=== PATIENT | female | born 1935 | race Hispanic/Latino ===

== ENCOUNTER 2017-09-20 06:44 | Day surgery (SDC) | payer MEDICARE, MEDICAID ==
[2017-09-19 13:39] VITALS: BMI 38.8
[2017-09-20 07:58] LABS: Hematocrit 26.5 % (36.0-47.0); Mean Platelet Volume 8.1 fL (7.4-10.4); Red Blood Cell (RBC) Count 3.08 mill/uL (4.20-5.40); White Blood Cell (WBC) Count 7.8 thou/uL (4.8-10.8)
[2017-09-20] MEDS ORDERED: Fentanyl 100 MCG/2 ML VIAL ONE (08:23)
[2017-09-20 08:26] LABS: Anion Gap 11 mmol/L (10-20); BUN (Urea Nitrogen) 27 mg/dL (9.8-20.1); Calc. Creatinine Clearance 37 mL/min (70-130); Calcium 7.9 mg/dL (7.8-10.44); Carbon Dioxide 27 mmol/L (23-31); Chloride 109 mmol/L (98-107); Estimated GFR-MDRD 32
[2017-09-20] MEDS ORDERED: Lidocaine 1% w/Epinephrine 1:200K 30 ML VIAL ONE (08:26)
--- NOTE | 2017-09-20 10:29 | OP ---
DATE OF PROCEDURE: 09/20/2017 SURGEON: Juvenal Major M.D. PREOPERATIVE DIAGNOSES: Chronic right temporal headaches. POSTOPERATIVE DIAGNOSES: Right temporal headaches, rule out temporal arteritis. PROCEDURE PERFORMED: Right temporal artery biopsy. PROCEDURE IN DETAIL: After consent was obtained, the patient was identified, brought to the operatin g room and placed on the table in supine position. Monitored anesthesia care was delivered and the a loretta of intended surgery was demarcated with a Doppler in a fashion that the artery was delineated. W e then prepped and draped the patient and infiltrated 1% lidocaine with 1:100,000 epinephrine. Under microscopic visualization, we made an incision, dissected down through skin and subcutaneous tissues and temporalis fascia. The artery was identified and an 8 cm length was removed in a hemostatic fas hion. Clips were placed proximally and distally with Hemoclips and bipolar was used for additional h emostasis. The wound was closed in layers, and Dermabond was applied. The patient was awakened and taken to recovery room where she remained in stable condition prior to discharge home.
--- NOTE | 2017-09-20 15:55 | EKG ---
Test Reason : PREOP Blood Pressure : / mmHG Vent. Rate : 075 BPM Atrial Rate : 075 BPM P-R Int : 118 ms QRS Dur : 078 ms QT Int : 422 ms P-R-T Axes : 083 041 064 degrees QTc Int : 471 ms Normal sinus rhythm Nonspecific T wave abnormality Prolonged QT Abnormal ECG When compared with ECG of 19-MAR-2014 08:53, No significant change was found Confirmed by CARY SOLITARIO ([id number]) on 09/20/2017 3:55:39 PM Referred By: HEIDI Confirmed By:CARY SOLITARIO
[2017-09-20] MEDS ORDERED: Propofol 200 MG/20 ML VIAL ONE (17:06)
[2017-09-20] MEDS ORDERED: Lidocaine 1% PF 5 ML VIAL ONE (17:06)
== END 2017-09-20 10:55 | disposition home or self-care (01) ==
LOC: SDC 06:44
PROVIDERS: ATTEND Specialist
PROC: 03BS0ZX Excision of Right Temporal Artery, Open Approach, Diagnostic (ICD-10-PCS; principal; 2017-09-20)
DX: I70.8 Atherosclerosis of other arteries (principal); Z90.710 Acquired absence of both cervix and uterus; Z98.890 Other specified postprocedural states; I12.9 Hypertensive chronic kidney disease with stage 1 through stage 4 chronic kidney disease, or unspecified chronic kidney disease; E11.22 Type 2 diabetes mellitus with diabetic chronic kidney disease; N18.3 Chronic kidney disease, stage 3 (moderate); J44.9 Chronic obstructive pulmonary disease, unspecified; E78.5 Hyperlipidemia, unspecified; M19.90 Unspecified osteoarthritis, unspecified site; Z87.891 Personal history of nicotine dependence
CPT/HCPCS: 80048; 85027; 88305; 88313; 93005; 93010; J2001; J2704; J3010

== ENCOUNTER 2018-01-16 17:43 | Inpatient (IN) | payer MEDICARE, MEDICAID ==
[2018-01-16 18:34] LABS: Bilirubin Negative (Negative); Blood, Urine Moderate (Negative); Clarity TURBID (Clear); Glucose, Urine (Dipstick) Negative (Negative); Leukocyte Large (Negative); Nitrite Negative (Negative); Protein, Urine (Dipstick) 100 mg/dL (Neg-Trace); Specific Gravity, Urine 1.018 (1.002-1.036); pH, Urine 5.5 (5.0-9.0)
[2018-01-16 18:38] LABS: Bacteria/HPF 4+ HPF (None Seen); Hyaline Casts/LPF 0-3 HYALINE CAST LPF (0-3 Hyaline); Pathc Cast-AUWi Flag 0.27 (0-2.49); Squamous Epithelial 0-3 HPF (0-3)
[2018-01-16 19:05] LABS: #Lymphocytes 1.5 thou/uL (1.20-3.40); #Neutrophils 10.3 thou/uL (1.40-6.50); %Basophils 0.1 % (0.0-1.0); %Eosinophils 0.2 % (0.0-10.0); %Lymphocytes 11.6 % (21.0-51.0); %Monocytes 7.4 % (0.0-10.0); %Neutrophils 80.7 % (42.0-75.0); Hemoglobin 8.9 g/dL (12.0-16.0); Mean Corpuscular HGB CONC 32.9 g/dL (32.0-36.0); Mean Corpuscular Hemoglobin 26.5 pg (27.0-31.0); Mean Corpuscular Volume 80.5 fl (81.0-99.0); Mean Platelet Volume 8.5 fL (7.4-10.4); Platelet Count 176 thou/uL (130-400); RBC Distribution Width 16.6 % (11.5-14.5); Red Blood Cell (RBC) Count 3.35 mill/uL (4.20-5.40); White Blood Cell (WBC) Count 12.8 thou/uL (4.8-10.8)
[2018-01-16 19:24] LABS: ALT (SGPT) Less than 7 U/L (8-55); AST (SGOT) 10 U/L (5-34); Albumin 3.4 g/dL (3.4-4.8); Alkaline Phosphatase 108 U/L (40-150); Anion Gap 13 mmol/L (10-20); BUN (Urea Nitrogen) 22 mg/dL (9.8-20.1); Bilirubin, Total 0.5 mg/dL (0.2-1.2); Calc. Creatinine Clearance 0 mL/min (70-130); Calcium 8.8 mg/dL (7.8-10.44); Carbon Dioxide 26 mmol/L (23-31); Chloride 103 mmol/L (98-107); Estimated GFR-MDRD 27; Globulin 3.1 g/dL (2.4-3.5); Glucose 110 mg/dL (83-110); Potassium 3.5 mmol/L (3.5-5.1); Protein, Total 6.5 g/dL (6.0-8.3); Sodium 138 mmol/L (136-145)
[2018-01-16 20:50] LABS: CKMB 1.1 ng/mL (0-6.6); Troponin I 0.045 ng/mL (< 0.028)
--- NOTE | 2018-01-16 22:29 | RAD ---
SUPINE PORTABLE CHEST ONE VIEW: 01/16/18 HISTORY: 82-year-old female with history of altered mental status and intermittent episodes of confusion with difficulty walking for two days. Heart size is within upper range of normal limits. Increased linear interstitial and reticulonodular parenchymal changes bilaterally. These reticulonodular parenchymal changes particularly in the left m id and somewhat lower lung zone appear more prominent on prior study raising the possibility of eithe r that of some acute atypical pneumonia or pneumonitis or some progressive chronic lung change. There is some minimal hyperinflation with blunting of the costophrenic angles. IMPRESSION: Increased markings bilaterally including some reticulonodular parenchymal changes in the left mid low er lung zone, possibly representing some progressive chronic change versus some minimal focal pneumon ia or pneumonitis. Correlate clinically. Consider short term followup. POS: CHASE
--- NOTE | 2018-01-16 23:01 | CT ---
BRAIN CT WITHOUT IV CONTRAST: 01/16/18 HISTORY: 82-year-old female with altered mental status, unable to walk, subjective fever, slight facial droop. COMPARISON: 08/16/07. FINDINGS: There is bilateral atrophy and chronic white matter ischemic changes and some old lacunar infarct lee nges with some generalized ventriculomegaly showing overall progression when compared to the prior 03 05 exam. Sinuses and mastoids are clear. No mass or midline shift. No intra or extra-axial hemorrhage. IMPRESSION: Atrophy, chronic white matter ischemic changes, and old lacunar infarct changes showing some progress ion from prior 2006 but no evidence for mass or bleed or other acute process. POS: CHASE
--- NOTE | 2018-01-16 23:41 | CT ---
ABDOMEN AND PELVIC CT SCAN WITHOUT IV CONTRAST: 01/16/18 HISTORY: 82-year-old female with diffuse abdominal pain. Concern for urinary tract infection. Low GFR. There are some minimal patchy parenchymal changes in the left lower lobe raising concern for minimal patchy pneumonia or pneumonitis. These were not present on the prior 07/05/16 CT. Status post cholecys tectomy. Visualized liver appears unremarkable. Pancreas and spleen are unremarkable. 1.5 cm diameter left adrenal adenoma. Several left renal cysts up to 4.8 cm. Small calcific focus in the right kidne y possibly a nonobstructing renal calculus. No evidence for acute obstruction. The wall of the deidre dder is mildly thickened possibly representing some cystitis, although it is not significantly disten ded either. There is scattered colonic diverticulosis without acute diverticulitis. No CT evidence fo r acute appendicitis. There are some borderline sized to mildly dilated loops of small bowel with a f ew scattered air fluid levels, nonspecific. There does not appear to be any significant abrupt transi tion zone. There is a small infraumbilical hernia containing a loop of small bowel. A similar appeara nce was noted on the prior 2016 study. It is conceivable that this could be resulting in some partial small bowel obstruction. IMPRESSION: Minimally dilated small bowel with some air fluid levels. Possibly a low grade partial small bowel ob struction versus some focal ileus. There is a small anterior abdominal wall hernia containing a porti on of a loop of bowel, although it does not appear to be overtly constricting or narrowing at the poi nt of the hernia, so I am not certain if this is related to the minimal small bowel dilatation. This small hernia was present and does not appear significantly changed when compared to the prior 2016. P arenchymal changes in the left lower lobe raises concern for patchy pneumonia or pneumonitis. Probabl e small hiatal hernia. Small stable left adrenal adenoma. No evidence for other significant acute pro cess in the abdomen pelvis. Other findings as above. POS: CHASE
[2018-01-17] MEDS ORDERED: Sodium Chloride 0.9% 100 ML ONE (00:17)
[2018-01-17] MEDS ORDERED: Aspirin 300 MG Suppository ONE (00:17)
[2018-01-17] MEDS ORDERED: cefTRIAXone\\ROCEPHIN 2 GM VIAL ONE (00:17)
--- NOTE | 2018-01-17 01:09 | PDOC.FPRHP ---
- History of Present Illness Chief Complaint: fatigue History of Present Illness: Stable 82 F comes into ED for evaluation of worsening confusion and weakness for 3-4 days. PMH includes shingles and DM2. Patient is A&Ox3 and lively at time of examination. She denies any pain, 0/10. Denies headache, abdominal pain , or burning with urination. Grand-daughter states patient has been acting more confused for last 3-4 and she noticed some R facial droop yesterday. Denies slurring of speech or focal weakness. Patient is usually ambulatory for granddaughter but has been too weak to walk for the last few days. Denies N/V, constipation. Had a BM before coming to ED. Patient states she has been passing flatus. Granddaughter reports mild decreased appetite past few days. ED Course: CT head negative CT Abd/pelvis shows possible partial SBO vs Ileus Rocephin - Allergies/Adverse Reactions Allergies Allergy/AdvReac Type Severity Reaction Status Date / Time No Known Allergies Allergy Verified 09/19/17 13:39 - Home Medications Medication Instructions Recorded Confirmed Type Levothyroxine Sodium 50 mcg PO DAILY 07/07/17 01/17/18 History Lisinopril 10 mg PO DAILY 07/07/17 01/17/18 History Omeprazole 20 mg PO HS 07/07/17 01/17/18 History metFORMIN HCl [metFORMIN HCl ER] 1,000 mg PO BID-PC 07/07/17 01/17/18 History Atorvastatin Calcium [Atorvastatin 40 mg PO HS 09/19/17 01/17/18 History Calcium] Cholecalciferol (Vitamin D3) 1,000 unit PO DAILY 09/19/17 01/17/18 History [Vitamin D3] Donepezil HCl [Aricept] 5 mg PO HS 09/19/17 01/17/18 History Mirabegron [Myrbetriq ER] 25 mg PO HS 09/19/17 01/17/18 History Gabapentin [Gabapentin] 100 mg PO TID 01/17/18 01/17/18 History Levemir Flexpen [Levemir FlexPen] 15 units SC HS 01/17/18 01/17/18 History - History PMHx:SHingles, DM2, HLD, HTN PSHx: Hysterectomy, C/S, Cholecystecomty 2/2 mass FHx: non-contributory Social: 1-2 ppd smoker for 40+ years, quit ~10 years ago, no alcohol, no drugs - Review of Systems General: reports: fatigue. denies: fever/chills, weight/appetite/sleep changes Eyes: denies: eye pain, vision changes ENT: denies: nasal congestion, rhinorrhea Respiratory: denies: cough, congestion, shortness of breath Cardiovascular: reports: edema. denies: chest pain, palpitation Gastrointestinal: denies: nausea, vomiting, diarrhea, constipation, abdominal pain, GI bleeding Genitourinary: denies: dysuria, polyuria Skin: reports: lesions (Old shingles vesicular rash on R side of abdomen). denies: rashes, jaundice Musculoskeletal: denies: pain, arthritis/arthralgias Neurological: denies: numbness, syncope Psychological: denies: anxiety, depression - Vital signs BP: 187/84 HR: 75 RR: 22 Tmax: 99.0 Pox: 93% on Ra Wt: 65kg - Physical Exam Constitutional: NAD, awake, alert and oriented -Constitutional: A&Ox3 HEENT: normocephalic and atraumatic, PERRLA, EOMI, grossly normal vision, MMM Neck: supple, FROM Heart: RRR, normal S1/S2, no murmurs/rubs/gallops, pulses present -Lungs: Diffuse expiratory wheezes consistent with smoking history, rales left lower quadrant Abdomen: soft, bowel sounds present, no masses/distention -Abdomen: Tender to deep palpation RUQ, rebound negative, non-tender to light palpation Musculoskeletal: normal structure, normal tone -Neurological: CN II-XII grossly intact Questionable slight R mouth droop - patient smiles and puffs cheeks without difficulty, no asymmetry raises legs off bed, normal strength in upper extremities symmetric Facial sensation intact and symmetrical Skin: capillary refill <2 seconds -Skin: old vesicular rash from shingles on R side of abdomen Heme/Lymphatic: no unusual bruising or bleeding, no purpura Psychiatric: normal mood and affect FMR H&P: Results - Labs Result Diagrams: 01/17/18 04:01 01/17/18 04:01 Lab results: WBC 12.8 thou/uL (4.8-10.8) H 01/16/18 18:52 Hgb 8.9 g/dL (12.0-16.0) L 01/16/18 18:52 Hct 27.0 % (36.0-47.0) L 01/16/18 18:52 MCV 80.5 fl (81.0-99.0) L 01/16/18 18:52 Plt Count 176 thou/uL (130-400) 01/16/18 18:52 Neutrophils % 80.7 % (42.0-75.0) H 01/16/18 18:52 Sodium 138 mmol/L (136-145) 01/16/18 18:52 Potassium 3.5 mmol/L (3.5-5.1) 01/16/18 18:52 Chloride 103 mmol/L (98-107) 01/16/18 18:52 Carbon Dioxide 26 mmol/L (23-31) 01/16/18 18:52 BUN 22 mg/dL (9.8-20.1) H 01/16/18 18:52 Creatinine 1.80 mg/dL (0.6-1.1) H 01/16/18 18:52 Glucose 110 mg/dL (83-110) 01/16/18 18:52 Lactic Acid 1.3 mmol/L (0.5-2.2) 01/16/18 18:52 Calcium 8.8 mg/dL (7.8-10.44) 01/16/18 18:52 Total Bilirubin 0.5 mg/dL (0.2-1.2) 01/16/18 18:52 AST 10 U/L (5-34) 01/16/18 18:52 ALT Less than 7 U/L (8-55) L 01/16/18 18:52 Alkaline Phosphatase 108 U/L (40-150) 01/16/18 18:52 CK-MB (CK-2) 1.1 ng/mL (0-6.6) 01/16/18 18:52 Serum Total Protein 6.5 g/dL (6.0-8.3) 01/16/18 18:52 Albumin 3.4 g/dL (3.4-4.8) 01/16/18 18:52 Urine Ketones Negative mg/dL (Negative) 01/16/18 18:18 Urine Blood Moderate (Negative) H 01/16/18 18:18 Urine Nitrite Negative (Negative) 01/16/18 18:18 Ur Leukocyte Esterase Large (Negative) H 01/16/18 18:18 Urine RBC 7-10 HPF (0-3) H 01/16/18 18:18 Urine WBC Greater Than 50-TNTC HPF (0-3) H 01/16/18 18:18 Ur Squamous Epith Cells 0-3 HPF (0-3) 01/16/18 18:18 Urine Bacteria 4+ HPF (None Seen) H 01/16/18 18:18 FMR H&P: A/P - Problem List (1) UTI (urinary tract infection) Current Visit: Yes Status: Acute (2) Dementia Current Visit: No Status: Chronic Code(s): F03.90 - UNSPECIFIED DEMENTIA WITHOUT BEHAVIORAL DISTURBANCE Qualifiers: Dementia type: unspecified type Dementia behavioral disturbance: without behavioral disturbance Qualified Code(s): F03.90 - Unspecified dementia without behavioral disturbance (3) Diabetes type 2, controlled Current Visit: No Status: Chronic Code(s): E11.9 - TYPE 2 DIABETES MELLITUS WITHOUT COMPLICATIONS (4) Dyslipidemia Current Visit: No Status: Chronic Code(s): E78.5 - HYPERLIPIDEMIA, UNSPECIFIED (5) GERD (gastroesophageal reflux disease) Current Visit: No Status: Chronic Code(s): K21.9 - GASTRO-ESOPHAGEAL REFLUX DISEASE WITHOUT ESOPHAGITIS (6) Hypertension Current Visit: No Status: Chronic Code(s): I10 - ESSENTIAL (PRIMARY) HYPERTENSION Qualifiers: Hypertension type: essential hypertension Qualified Code(s): I10 - Essential (primary) hypertension - Plan # Encephalopathy 2/2 UTI - rocephin - Lactic Acid 1.3 - afebrile - A&Ox3 after rocephin # Possible SBO vs Ileus - partial SBO vs ileus on CT abd/pelvis - Had BM today, patient states has flatus - tender to deep palpation in RUQ - Monitor clinically, NG later if not passing flatus or increased abdominal pain - NPO for now, fluids #Questionable facial droop - NIH stroke scale 0 - no focal deficits - smiles and puffs cheeks symmetrically -CT head negative - no further work up at this time # Parenchymal Changes Left Mid Lung - Rocephin - possible PNA - rales on exam, no hypoxia, no fever - 2 view CXR in AM for further characterization # HTN - home lisinopril 10 daily, consider increasing - added amlodipine 5mg 2/2 pressures in 180s systolic - labetolol PRN # Indeterminate Trop - 0.045 - no chest pain, no EKG changes - trend # DM2 - home levemir 15U qHS - accuchecks qAC-HS # Dementia - home donepezil - A&Ox3 # HLD - atorvastatin # Code - DNR - discussed with daughter and patient in ED # PPx - SCDs - will hold pharmacologic for now 2/2 possibility of SBO FMR H&P: Upper Level - Pertinent history 82 yo female with 2-3 days of increased fatigue and confusion. She denies abdominal pain. She has had several loose bowel movements. She states that she has passed gas but her family is not so certain. She denies dysuria or urinary frequency. - Pertinent findings Gen: WD/WN female in no acute distress HEENT: NC/AT, KARISHMA,EOMI, MMM, Facial asymmetry at rest with right mouth droop but not with active movements. She has asymmetric dentition. Resp: bilateral mild rhonchi, normal work of breathing. CV: RRR, normal S1, S2, no murmur ABD: Soft with some tenderness in RUQ, nondistended. She has a rash along that space consistent with zoster. Extremities: no edema, pulses 2+ Psych: calm, normal affect and mood Neuro: normal strength and sensation, CN exam normal, including multiple tests of the facial nerve. - Plan Date/Time: 01/17/18 0102 Genesis Ross, have evaluated this patient and agree with findings/plan as outlined by record label internship resident. Pertinent changes/additions are listed here. # Metabolic Encephalopathy- Patient does not meet sepsis criteria but is more confused according to close family, especially before treatement in ED. She has a UA consistent with infection so we will treat that # Possible SBO or Ileus- CT did have some signs consistent with partial SBO and there is tenderness on exam, although this was over skin with zoster infection. We will hydrate and monitor symptoms #Facial asymmetry from dentition- Originally concerned for facial droop but slight asymmetry is better explained by dentition rather than neuro deficit because facial nerve exam is symmetric with active use. # Parenchymal Changes Left Mid Lung- heard on exam and seen on CXR, although that could be residual from PNA last month. CXR not available from last month. Will repeat CXR tomorrow. # HTN- uncontrolled here. Will monitor and consider outpatient adjustment. She typically is controlled in clinic but has had readings higher than currently is # Indeterminate Trop- trending down. No chest pain to suggest cardiac # DM2- continue home insulin # Dementia close to baseline but still somewhat confused # HLD- continue home statin Attending Addendum - Attending Addendum Date/Time: 01/17/18 1535 I personally evaluated the patient and discussed the management with Dr. Márquez/ Paul. I agree with the History, Examination, Assessment and Plan documented above with any addition or exceptions noted below. Patient admitted for several days of increased confusion and weakness. She has history of dementia. She currently complains of abdominal pain that is tender to light touch and directly over her previous zoster infection. She is A&Ox1 at current time. She have evidence of UTI on UA, as well as mild infiltrate on CXR. She will be treated with antibiotics and work on improving pain control. Currently she does not appear to have SBO as she had bowel movement yesterday and is passing flatus. Continue to monitor, NGT has been discontinued. Will give clear diet and advance as tolerated. Reintroduce NGT if she fails diet or has worsening distention/obstipation. Will get PT/OT on board for weakness and generalized deconditioning.
[2018-01-17 01:24] LABS: Troponin I 0.033 ng/mL (< 0.028)
[2018-01-17] MEDS ORDERED: Ondansetron HCl/PF 4 MG/2 ML Vial IVP PRN (01:49)
[2018-01-17] MEDS ORDERED: HYDROcodone/Acetaminophen 5/325 mg Tablet PO PRN (01:49)
[2018-01-17] MEDS ORDERED: Dextrose 5% in Water 1,000 ML IV PRN (01:57)
[2018-01-17] MEDS ORDERED: Dextrose 50% Abboject 50 ML SYRINGE SLOW IVP PRN (01:57)
[2018-01-17] MEDS: Sodium Chloride 0.9% 1,000 ML IV SCH ×2 (03:26→13:50)
[2018-01-17 04:23] VITALS: BMI 29.9
[2018-01-17 05:01] LABS: #Lymphocytes 1.4 thou/uL (1.20-3.40); #Monocytes 0.7 thou/uL (0.11-0.59); #Neutrophils 7.9 thou/uL (1.40-6.50); %Basophils 0.2 % (0.0-1.0); %Eosinophils 0.4 % (0.0-10.0); %Monocytes 6.7 % (0.0-10.0); %Neutrophils 78.7 % (42.0-75.0); Mean Corpuscular HGB CONC 32.5 g/dL (32.0-36.0); Mean Corpuscular Hemoglobin 26.1 pg (27.0-31.0); Mean Corpuscular Volume 80.5 fl (81.0-99.0); Mean Platelet Volume 9.1 fL (7.4-10.4); Platelet Count 163 thou/uL (130-400); RBC Distribution Width 16.4 % (11.5-14.5); Red Blood Cell (RBC) Count 3.06 mill/uL (4.20-5.40)
[2018-01-17 05:12] LABS: Anion Gap 12 mmol/L (10-20); BUN (Urea Nitrogen) 20 mg/dL (9.8-20.1); Bilirubin, Total 0.3 mg/dL (0.2-1.2); Calc. Creatinine Clearance 30 mL/min (70-130); Calcium 8.3 mg/dL (7.8-10.44); Carbon Dioxide 22 mmol/L (23-31); Chloride 108 mmol/L (98-107); Estimated GFR-MDRD 32; Glucose 85 mg/dL (83-110); Potassium 3.4 mmol/L (3.5-5.1); Sodium 139 mmol/L (136-145)
[2018-01-17 05:13] LABS: ALT (SGPT) Less than 7 U/L (8-55); AST (SGOT) 11 U/L (5-34); Albumin 3.1 g/dL (3.4-4.8); Alkaline Phosphatase 99 U/L (40-150); Globulin 2.9 g/dL (2.4-3.5)
[2018-01-17 05:15] LABS: Troponin I 0.039 ng/mL (< 0.028)
[2018-01-17] MEDS: Levothyroxine Sodium 50 MCG TAB PO SCH (06:42)
[2018-01-17] MEDS: Docusate 100 MG CAP PO SCH ×2 (08:29→20:14)
[2018-01-17] MEDS: Lisinopril 10 MG TAB PO SCH (08:29)
[2018-01-17] MEDS: Calcium Carbonate 500 MG ChewTAB PO SCH (08:29)
[2018-01-17] MEDS: Gabapentin 100 MG CAP PO SCH ×3 (08:29→20:14)
[2018-01-17] MEDS: Amlodipine 5 MG TAB PO SCH (08:33)
--- NOTE | 2018-01-17 10:07 | RAD ---
2 VIEWS CHEST: Date: 01/17/18 COMPARISON: 01/16/18. HISTORY: Follow-up left lower lobe infiltrate. FINDINGS: 2 views of the chest show normal sized cardiomediastinal silhouette with atherosclerotic calcificatio ns in the aorta. NG tube seen in the stomach. There is slight worsening of the opacities projecting o pj the left lower lobe which likely represent an infiltrate. No pleural effusion is seen. IMPRESSION: Slight worsening of left lower lobe infiltrate. POS: TPC
[2018-01-17] MEDS: Donepezil HCl 5 MG TAB PO SCH (20:14)
[2018-01-17] MEDS: Atorvastatin Calcium 40 MG TAB PO SCH (20:14)
[2018-01-17] MEDS: Insulin Detemir 100 UNITS/ML 15 UNITS in Pre-Filled Syringe 1 EACH SC SCH (20:41)
[2018-01-18] MEDS: Sodium Chloride 0.9% 1,000 ML IV SCH ×3 (01:36→18:18)
[2018-01-18] MEDS: cefTRIAXone\\ROCEPHIN 1 GM in Sterile Water 10 ML SLOW IVP SCH (01:36)
[2018-01-18 04:27] LABS: ALT (SGPT) Less than 7 U/L (8-55); AST (SGOT) 11 U/L (5-34); Albumin 2.9 g/dL (3.4-4.8); Alkaline Phosphatase 91 U/L (40-150); Anion Gap 11 mmol/L (10-20); BUN (Urea Nitrogen) 15 mg/dL (9.8-20.1); Bilirubin, Total 0.3 mg/dL (0.2-1.2); Calc. Creatinine Clearance 36 mL/min (70-130); Calcium 8.1 mg/dL (7.8-10.44); Carbon Dioxide 23 mmol/L (23-31); Chloride 109 mmol/L (98-107); Estimated GFR-MDRD 40; Globulin 2.6 g/dL (2.4-3.5); Glucose 66 mg/dL (83-110); Protein, Total 5.5 g/dL (6.0-8.3); Sodium 140 mmol/L (136-145)
[2018-01-18] MEDS: Levothyroxine Sodium 50 MCG TAB PO SCH (05:34)
[2018-01-18 06:50] LABS: #Eosinphils 0.1 thou/uL (0.0-0.7); #Monocytes 0.6 thou/uL (0.11-0.59); #Neutrophils 6.3 thou/uL (1.40-6.50); %Basophils 0.3 % (0.0-1.0); %Eosinophils 1.4 % (0.0-10.0); %Lymphocytes 12.2 % (21.0-51.0); %Monocytes 7.1 % (0.0-10.0); Hemoglobin 7.8 g/dL (12.0-16.0); Mean Corpuscular HGB CONC 32.9 g/dL (32.0-36.0); Mean Corpuscular Hemoglobin 26.4 pg (27.0-31.0); Mean Corpuscular Volume 80.2 fl (81.0-99.0); Mean Platelet Volume 8.8 fL (7.4-10.4); Platelet Count 181 thou/uL (130-400); RBC Distribution Width 16.3 % (11.5-14.5); Red Blood Cell (RBC) Count 2.95 mill/uL (4.20-5.40)
--- NOTE | 2018-01-18 08:24 | PDOC.FM ---
- Subjective Subjective: 82 F w/hx of HTN, CAD, demntia, DM2 admitted with UTI and PNA causing AMS. Today pt is states that she feels better today than yesterday. She tolerated a clear liquid diet yesterday and denies continued N/v. She states that she continues to have a cough, however has no CP or SOB. Over night pt had a hypoglycemic episode down to 52, she was given juice and recovered to 101. - Objective MAR Reviewed: Yes Vital Signs & Weight: Vital Signs (12 hours) Temp Pulse Resp BP Pulse Ox 01/18/18 04:02 97.7 F 78 18 157/71 H 94 L 01/18/18 00:00 98.3 F 84 18 174/73 H 92 L 01/17/18 20:35 98 F 69 20 161/63 H 96 Weight Admit Weight 64.864 kg Weight 64.864 kg I&O: 01/17/18 01/18/18 01/19/18 06:59 06:59 06:59 Intake Total 450 1600 Output Total 140 Balance 310 1600 Result Diagrams: 01/18/18 03:06 01/18/18 03:08 <Brain Pack - Last Filed: 01/18/18 08:18> - Objective Vital Signs & Weight: Vital Signs (12 hours) Temp Pulse Resp BP BP Pulse Ox 01/18/18 11:41 97.5 F L 71 14 119/70 95 01/18/18 09:29 74 155/70 H 01/18/18 08:24 97.5 F L 74 15 155/70 H 95 01/18/18 04:02 97.7 F 78 18 157/71 H 94 L Weight Admit Weight 64.864 kg Weight 64.864 kg I&O: 01/17/18 01/18/18 01/19/18 06:59 06:59 06:59 Intake Total 450 1600 Output Total 140 Balance 310 1600 Result Diagrams: 01/18/18 03:06 01/18/18 03:08 <Roberto Gamble - Last Filed: 01/18/18 12:53> Phys Exam - Physical Examination Constitutional: NAD HEENT: moist MMs, sclera anicteric Neck: supple, full ROM Wheezing throughout with rales worse on the LL Cardiovascular: RRR, no significant murmur Gastrointestinal: soft, no distention, positive bowel sounds Continued TTP over area affected by shingles outbreak. Musculoskeletal: no edema, pulses present Neurological: moves all 4 limbs Psychiatric: normal affect Deviation from normal: A&O x1. Does not know place or year Skin: normal turgor Deviation from normal: Healing herpetic leasions over R T9-10 dermatome <Brain Pack - Last Filed: 01/18/18 08:18> Dx/Plan (1) CAP (community acquired pneumonia) Code(s): J18.9 - PNEUMONIA, UNSPECIFIED ORGANISM Status: Acute (2) UTI (urinary tract infection) Status: Acute (3) Encephalopathy acute Code(s): G93.40 - ENCEPHALOPATHY, UNSPECIFIED Status: Acute (4) Hypokalemia Code(s): E87.6 - HYPOKALEMIA Status: Acute (5) Hypomagnesemia Code(s): E83.42 - HYPOMAGNESEMIA Status: Acute (6) Microcytic anemia Code(s): D50.9 - IRON DEFICIENCY ANEMIA, UNSPECIFIED Status: Chronic (7) Dementia Code(s): F03.90 - UNSPECIFIED DEMENTIA WITHOUT BEHAVIORAL DISTURBANCE Status: Chronic QualifierTitle: Dementia type: unspecified type Dementia behavioral disturbance: without behavioral disturbance Qualified Code(s): F03.90 - Unspecified dementia without behavioral disturbance (8) Diabetes type 2, controlled Code(s): E11.9 - TYPE 2 DIABETES MELLITUS WITHOUT COMPLICATIONS Status: Chronic (9) Hypertension Code(s): I10 - ESSENTIAL (PRIMARY) HYPERTENSION Status: Chronic QualifierTitle: Hypertension type: essential hypertension Qualified Code( s): I10 - Essential (primary) hypertension (10) Postherpetic neuralgia Code(s): B02.29 - OTHER POSTHERPETIC NERVOUS SYSTEM INVOLVEMENT Status: Acute (11) Hypoalbuminemia Code(s): E88.09 - OTH DISORDERS OF PLASMA-PROTEIN METABOLISM, NEC Status: Acute - Plan Plan: AMS 2/2 UTI - Pt currently growing gram neg rods, sensitivity pending - continue rocephin - blood cx have coag neg staph x1 and neg x1 PNA - likely contributing to AMS - rocephin as above. Pt currently does not have a white count or O2 requirement . Hypokalemia - WIll replace today Hypomagnesemia - replace today. bmp w/mg in am microcytic anemia - pt is chronically anemia, however 7.8 this is lower than her previous norm - FOBT Hypoalbuminemia - likely 2/2 poor nutrition. Prealbumin pending HTN - continue home meds DM - home meds held dt hypoglycemia - diet is being advanced today - achs accucheck - low carb diet dementia - continue home meds CAD - home statin Postherpetic neuralgia - continue gabapentin, continue increasing dose. This should be monitored closely dt AMS Dispo: stable and objectively improving. Likely ready to dc in the next 1-2 days <Brain Pack - Last Filed: 01/18/18 08:18> (1) UTI (urinary tract infection) Status: Acute (2) Dementia Code(s): F03.90 - UNSPECIFIED DEMENTIA WITHOUT BEHAVIORAL DISTURBANCE Status: Chronic Qualifiers: Dementia type: unspecified type Dementia behavioral disturbance: without behavioral disturbance Qualified Code(s): F03.90 - Unspecified dementia without behavioral disturbance (3) Diabetes type 2, controlled Code(s): E11.9 - TYPE 2 DIABETES MELLITUS WITHOUT COMPLICATIONS Status: Chronic (4) Dyslipidemia Code(s): E78.5 - HYPERLIPIDEMIA, UNSPECIFIED Status: Chronic (5) GERD (gastroesophageal reflux disease) Code(s): K21.9 - GASTRO-ESOPHAGEAL REFLUX DISEASE WITHOUT ESOPHAGITIS Status: Chronic (6) Hypertension Code(s): I10 - ESSENTIAL (PRIMARY) HYPERTENSION Status: Chronic Qualifiers: Hypertension type: essential hypertension Qualified Code(s): I10 - Essential (primary) hypertension <Roberto Gamble - Last Filed: 01/18/18 12:53> Attending Addendum - Attending Addendum Date/Time: 01/18/18 1251 I personally evaluated the patient and discussed the management with Dr. Pack. I agree with the History, Examination, Assessment and Plan documented above with any addition or exceptions noted below. Patient with improved mentation this morning, she denies pain complaints. She has been afebrile and WBC normal today. Continue Rocephin for her UTI, adding Azithromycin due to worsening infiltrate on CXR associated with mild productive cough. She does not have a SBO as she is tolerating diet and having bowel movements. Abdomen soft. Will add nutritional supplements today. Obtain PT recs as patient is deconditioned. Continue current mgmt. <Roberto Gamble R - Last Filed: 01/18/18 12:53>
[2018-01-18] MEDS ORDERED: Potassium Chloride 40 MEQ in Sodium Chloride 0.9% 250 ML 250 ML IVPB SCH (09:00)
[2018-01-18] MEDS ORDERED: Magnesium Sulfate 3 GM in Sodium Chloride 0.9% 100 ML IVPB SCH (09:00)
[2018-01-18] MEDS: Calcium Carbonate 500 MG ChewTAB PO SCH (09:29)
[2018-01-18] MEDS: Amlodipine 5 MG TAB PO SCH (09:29)
[2018-01-18] MEDS: Docusate 100 MG CAP PO SCH ×2 (09:29→22:13)
[2018-01-18] MEDS: Lisinopril 10 MG TAB PO SCH (09:29)
[2018-01-18] MEDS: Gabapentin 100 MG CAP PO SCH ×3 (09:29→22:13)
[2018-01-18] MEDS ORDERED: Azithromycin 250 MG TAB PO ONE (11:00)
[2018-01-18] MEDS: Insulin Detemir 100 UNITS/ML 15 UNITS in Pre-Filled Syringe 1 EACH SC SCH (22:12)
[2018-01-18] MEDS: Atorvastatin Calcium 40 MG TAB PO SCH (22:13)
[2018-01-18] MEDS: Donepezil HCl 5 MG TAB PO SCH (22:13)
[2018-01-18] MEDS: Labetalol HCl 100 MG/20 ML VIAL SLOW IVP PRN (23:21)
[2018-01-19] MEDS: Sodium Chloride 0.9% 1,000 ML IV SCH (00:23)
[2018-01-19] MEDS: cefTRIAXone\\ROCEPHIN 1 GM in Sterile Water 10 ML SLOW IVP SCH (00:23)
[2018-01-19] MEDS: Labetalol HCl 100 MG/20 ML VIAL SLOW IVP PRN (03:36)
[2018-01-19] MEDS: Levothyroxine Sodium 50 MCG TAB PO SCH (05:43)
[2018-01-19 05:54] LABS: #Eosinphils 0.1 thou/uL (0.0-0.7); #Lymphocytes 1.1 thou/uL (1.20-3.40); #Monocytes 0.6 thou/uL (0.11-0.59); #Neutrophils 5.1 thou/uL (1.40-6.50); %Basophils 0.2 % (0.0-1.0); %Eosinophils 1.1 % (0.0-10.0); %Lymphocytes 15.6 % (21.0-51.0); %Monocytes 8.8 % (0.0-10.0); %Neutrophils 74.4 % (42.0-75.0); Hemoglobin 8.1 g/dL (12.0-16.0); Mean Corpuscular HGB CONC 32.9 g/dL (32.0-36.0); Mean Corpuscular Hemoglobin 26.3 pg (27.0-31.0); Mean Platelet Volume 8.4 fL (7.4-10.4); Platelet Count 200 thou/uL (130-400); RBC Distribution Width 16.3 % (11.5-14.5); Red Blood Cell (RBC) Count 3.07 mill/uL (4.20-5.40); White Blood Cell (WBC) Count 6.9 thou/uL (4.8-10.8)
[2018-01-19 06:06] LABS: Anion Gap 11 mmol/L (10-20); BUN (Urea Nitrogen) 12 mg/dL (9.8-20.1); Calc. Creatinine Clearance 33 mL/min (70-130); Calcium 8.5 mg/dL (7.8-10.44); Carbon Dioxide 22 mmol/L (23-31); Chloride 111 mmol/L (98-107); Estimated GFR-MDRD 36; Glucose 137 mg/dL (83-110); Potassium 3.8 mmol/L (3.5-5.1); Sodium 140 mmol/L (136-145)
--- NOTE | 2018-01-19 07:49 | PDOC.FM ---
- Subjective Subjective: Patient has no complaints this AM. She reports that she has had BM's and is tolerating PO without difficulty. She denies dysuria or frequency. She denies SOB or cough. - Objective MAR Reviewed: Yes Vital Signs & Weight: Vital Signs (12 hours) Temp Pulse Resp BP BP Pulse Ox 01/19/18 04:08 156/70 H 01/19/18 03:55 98.2 F 82 20 188/91 H 93 L 01/19/18 03:36 83 188/61 H 01/19/18 00:07 170/86 H 01/18/18 23:21 83 189/65 H 01/18/18 23:17 98.6 F 85 20 189/65 H 95 01/18/18 20:40 98.2 F 83 20 93 L 01/18/18 20:07 98.2 F 83 20 191/73 H 93 L Weight Admit Weight 64.864 kg Weight 64.864 kg I&O: 01/18/18 01/19/18 01/20/18 06:59 06:59 06:59 Intake Total 450 3000 Output Total 140 Balance 310 3000 Result Diagrams: 01/19/18 05:32 01/19/18 05:32 <Cindy Roberson - Last Filed: 01/19/18 07:47> - Objective Vital Signs & Weight: Weight Admit Weight 143 lb Weight 143 lb I&O: 01/19/18 01/20/18 01/21/18 06:59 06:59 06:59 Intake Total 3000 800 Balance 3000 800 Result Diagrams: 01/19/18 05:32 01/19/18 05:32 <Eulogio Wood - Last Filed: 01/20/18 11:26> Phys Exam - Physical Examination Constitutional: NAD HEENT: moist MMs wheezing present with coarse breath sounds bilaterally Cardiovascular: RRR, no significant murmur, no rub Gastrointestinal: soft, non-tender, no distention, positive bowel sounds Musculoskeletal: no edema, pulses present Neurological: non-focal, moves all 4 limbs Psychiatric: normal affect Deviation from normal: A&Ox2 Skin: normal turgor, cap refill <2 seconds <Cindy Roberson - Last Filed: 01/19/18 07:47> Dx/Plan (1) Encephalopathy acute Code(s): G93.40 - ENCEPHALOPATHY, UNSPECIFIED Status: Acute (2) CAP (community acquired pneumonia) Code(s): J18.9 - PNEUMONIA, UNSPECIFIED ORGANISM Status: Acute QualifierTitle: Laterality: left Lung location: lower lobe of lung Qualified Code(s): J18.1 - Lobar pneumonia, unspecified organism (3) UTI (urinary tract infection) Status: Acute QualifierTitle: Urinary tract infection type: acute cystitis Hematuria presence: without hematuria Qualified Code(s): N30.00 - Acute cystitis without hematuria (4) Postherpetic neuralgia Code(s): B02.29 - OTHER POSTHERPETIC NERVOUS SYSTEM INVOLVEMENT Status: Acute (5) Microcytic anemia Code(s): D50.9 - IRON DEFICIENCY ANEMIA, UNSPECIFIED Status: Chronic (6) Dementia Code(s): F03.90 - UNSPECIFIED DEMENTIA WITHOUT BEHAVIORAL DISTURBANCE Status: Chronic QualifierTitle: Dementia type: unspecified type Dementia behavioral disturbance: without behavioral disturbance Qualified Code(s): F03.90 - Unspecified dementia without behavioral disturbance (7) Diabetes type 2, controlled Code(s): E11.9 - TYPE 2 DIABETES MELLITUS WITHOUT COMPLICATIONS Status: Chronic QualifierTitle: Diabetes mellitus residential insulin use: with residential use Diabetes mellitus complication status: with unspecified complications Qualified Code(s): E11.8 - Type 2 diabetes mellitus with unspecified complications; Z79.4 - staff pharmacist (current) use of insulin; Z79.4 - care home ( current) use of insulin; Z79.4 - care home (current) use of insulin; Z79.4 - staff pharmacist (current) use of insulin (8) GERD (gastroesophageal reflux disease) Code(s): K21.9 - GASTRO-ESOPHAGEAL REFLUX DISEASE WITHOUT ESOPHAGITIS Status: Chronic QualifierTitle: Esophagitis presence: without esophagitis Qualified Code( s): K21.9 - Gastro-esophageal reflux disease without esophagitis (9) Hypertension Code(s): I10 - ESSENTIAL (PRIMARY) HYPERTENSION Status: Chronic QualifierTitle: Hypertension type: essential hypertension Qualified Code( s): I10 - Essential (primary) hypertension (10) Hypothyroidism Code(s): E03.9 - HYPOTHYROIDISM, UNSPECIFIED Status: Chronic QualifierTitle: Hypothyroidism type: unspecified Qualified Code(s): E03.9 - Hypothyroidism, unspecified - Plan Plan: Acute Encephalopathy 2/2 UTI UCx grew E. coli resistant to fluoroquinolones. Blood cx have coag neg staph x1 and neg x1, it was likely a contaminant. Patient is AOx2 today, which is closer to her baseline. -Rocephin day 4, will transition to PO ancef LLL PNA likely contributing to AMS -Levaquin day 3, will transition to PO levaquin microcytic anemia pt is chronically anemia, however 7.8 this is lower than her previous norm -FOBT Hypoalbuminemia likely 2/2 poor nutrition with dementia. Prealbumin low. -Continue nutritional supplements HTN -continue home meds DM Hypoglycemic yesterday, but has been WNL today. Insulin was held last night -achs accucheck -consistent carb diet dementia -continue home meds CAD -home statin Postherpetic neuralgia -continue gabapentin, continue increasing dose. This should be monitored closely dt AMS Dispo: stable and objectively improving. Likely ready to dc today pending rehab screen. <Cindy Roberson - Last Filed: 01/19/18 07:47> Attending Addendum - Attending Addendum Date/Time: 01/20/18 [id number] I personally evaluated the patient and discussed the management with Dr. Roberson I agree with the History, Examination, Assessment and Plan documented above with any addition or exceptions noted below. Patient was seen in the hospital for encephalopathy 2/2 UTI. She also had LLL pneumonia. Patient has h/o dementia, but at time of evaluation was back at her baseline mental status. The family and the patient wish to go home and do not wish for rehab at this time. Will transition to oral abx and patient is stable for d/c. <Eulogio Wood - Last Filed: 01/20/18 11:26>
[2018-01-19] MEDS: Gabapentin 100 MG CAP PO SCH (08:47)
[2018-01-19] MEDS: Docusate 100 MG CAP PO SCH (08:48)
[2018-01-19] MEDS: Amlodipine 5 MG TAB PO SCH (08:48)
[2018-01-19] MEDS: Lisinopril 10 MG TAB PO SCH (08:48)
[2018-01-19] MEDS: Calcium Carbonate 500 MG ChewTAB PO SCH (08:48)
[2018-01-19] MEDS ORDERED: Azithromycin 250 MG TAB PO SCH (09:00)
[2018-01-19 11:44] VITALS: TEMP 98.4
[2018-01-19 15:41] VITALS: BP 150/68
--- NOTE | 2018-01-20 00:27 | EKG ---
Test Reason : Blood Pressure : / mmHG Vent. Rate : 071 BPM Atrial Rate : 071 BPM P-R Int : 114 ms QRS Dur : 084 ms QT Int : 454 ms P-R-T Axes : 077 023 050 degrees QTc Int : 493 ms Sinus rhythm with Premature atrial complexes Prolonged QT Abnormal ECG Confirmed by LUKE DAIGLE ([id number]), newspaper managing editor LILIANE BOND ([id number]) on 01/20/2018 12:25:32 AM Referred By: Confirmed By:LUKE DAIGLE
--- NOTE | 2018-01-21 01:07 | DIS-2 ---
DATE OF ADMISSION: 01/17/2018 DATE OF DISCHARGE: 01/19/2018 ADMITTING RESIDENT: Tray Márquez MD DISCHARGE RESIDENT: Cindy Roberson MD ADMITTING ATTENDING: Roberto Gamble MD DISCHARGE ATTENDING: Eulogio Wood M.D. CONSULTS: None. PROCEDURES: None. IMAGIN. Chest x-ray on 01/16/2018, showed increased markings bilaterally including some reticular nodule parenchymal changes in the left mid lower lung zone. 2. Brain CT showed atrophy and chronic white matter ischemic changes and an old lacunar infarct show ing some progression from prior in 2006, but no acute process. 3. Abdomen and pelvis CT showed possible low-grade partial small-bowel obstruction versus some focal ileus and parenchymal changes in the left lower lobe raises concern for patchy pneumonia or pneumoni tis and probable small hiatal hernia. 4. Chest x-ray on 01/17/2018, shows slight worsening of left lower lobe infiltrate. PRIMARY DIAGNOSES: 1. Acute encephalopathy. 2. Urinary tract infection. 3. Local pneumonia. 4. Microcytic anemia. 5. Hypoalbuminemia. 6. Postherpetic neuralgia. SECONDARY DIAGNOSES: 1. Hypertension. 2. Diabetes. 3. Dementia. 4. Coronary artery disease. DISCHARGE MEDICATIONS: 1. Levemir FlexPen 15 units subcu at bedtime. 2. Metformin 1000 mg p.o. b.i.d. 3. Omeprazole 20 mg p.o. at bedtime. 4. Lisinopril 10 mg p.o. daily. 5. Vitamin D3 of 1000 units p.o. daily. 6. Levothyroxine 50 mcg p.o. daily. 7. Atorvastatin 40 mg p.o. at bedtime. 8. Myrbetriq ER 25 mg p.o. at bedtime. 9. Donepezil 5 mg p.o. at bedtime. 10. Gabapentin 100 mg p.o. t.i.d. 11. Levofloxacin 500 mg p.o. q.2 days for dispensed #3. 12. Cephalexin 500 mg p.o. b.i.d., dispensed #8. 13. Amlodipine 5 mg p.o. daily. DISCONTINUED MEDICATIONS: None. HOSPITAL COURSE: This is an 82-year-old female with past medical history of dementia who presented t o the ED with worsening confusion, weakness for the past few days. The patient was found to have a u rinary tract infection is likely cause of her altered mental status. Her urine grew out E. coli that was resistant to fluoroquinolones. The patient also initially had elevated white blood cell count 1 2.8, but that trended down. The patient was started initially on Rocephin and then after her second chest x-ray result came back, Levaquin was added on for concern for her left lower lobe pneumonia. T he patient had been admitted to the hospital for left lower lobe pneumonia in the past and so Levaqui n was added, add antipseudomonal coverage. The patient initially had concern for small-bowel obstruc tion versus ileus on her CT; however, she was having bowel movements and passing gas without difficul ty. She did have some abdominal pain, but it was predominantly in the area of where her shingles and was likely related to postherpetic neuralgia. The patient on 01/18/2018 had an episode of hypoglyce sher down to 62. This resolved and came up to 103 and then down to 68 and then back up to 94 and then the rest of her hospitalization, she was a little bit hyperglycemic. The patient was A and O x2 on her day of discharge and the daughter reported that she is about her baseline. A rehab screen was of fered to the patient and the daughter; however, both refused and said that they preferred to go home and that the patient would have good family support at home and had someone who was there to stay wit h her 24 hours a day. The patient was symptomatically improved and so she was discharged home on Kef karly and Levaquin. DISPOSITION: Stable. DISCHARGE INSTRUCTIONS: 1. Location: Home. 2. Diet: Diabetic. 3. Activity: As tolerated. 4. Follow up with Dr. Gamble within 7 days.
== END 2018-01-19 16:10 | disposition home or self-care (01) | DRG 689 ==
LOC: ERS 17:43 → SURG A 01-17 00:10
PROVIDERS: ADMIT Family Medicine; ATTEND Family Medicine
DX: N39.0 Urinary tract infection, site not specified (principal); G93.40 Encephalopathy, unspecified; J18.9 Pneumonia, unspecified organism; B02.29 Other postherpetic nervous system involvement; E83.42 Hypomagnesemia; E11.649 Type 2 diabetes mellitus with hypoglycemia without coma; D53.9 Nutritional anemia, unspecified; B96.20 Unspecified Escherichia coli [E. coli] as the cause of diseases classified elsewhere; F03.90 Unspecified dementia, unspecified severity, without behavioral disturbance, psychotic disturbance, mood disturbance, and anxiety; I10 Essential (primary) hypertension; I25.10 Atherosclerotic heart disease of native coronary artery without angina pectoris; E87.6 Hypokalemia
CPT/HCPCS: 36415; 36416; 70450; 71045; 71046; 74176; 80048; 80053; 81003; 81015; 82553; 83605; 83735; 84134; 84484; 85025; 87040; 87077; 87086; 87149; 87186; 93005; 96365; A4216; G8978-GP-CM; G8979-GP-CK; G8996-GN-CJ; G8997-GN-CH; J0696; J1815; J1956; J3475; J3480; J7050

== ENCOUNTER 2018-01-23 09:32 | Outpatient (CLI) | payer MEDICARE, MEDICAID ==
[2018-01-23 11:17] LABS: Bilirubin Negative (Negative); Blood, Urine Negative (Negative); Clarity CLEAR (Clear); Glucose, Urine (Dipstick) Negative (Negative); Leukocyte Negative (Negative); Nitrite Negative (Negative); Protein, Urine (Dipstick) Trace mg/dL (Neg-Trace); Specific Gravity, Urine 1.014 (1.002-1.036); Urobilinogen 0.2 mg/dL (0.2-1.0)
[2018-01-23 11:20] LABS: Bacteria/HPF None Seen HPF (None Seen); Hyaline Casts/LPF 4-6 HYALINE CAST LPF (0-3 Hyaline); Pathc Cast-AUWi Flag 1.16 (0-2.49); RBC/HPF 0-3 HPF (0-3); Squamous Epithelial 0-3 HPF (0-3); WBC/HPF 0-3 HPF (0-3)
--- NOTE | 2018-01-24 14:35 | CT ---
NONCONTRAST ENHANCED CT IMAGES ABDOMEN AND PELVIS: DATE: 01/23/18. COMPARISON: Comparison is made to previous exam from 01/16/18. FINDINGS: Noncontrast-enhanced CT images of the abdomen and pelvis demonstrate again areas of patchy density in the left lung base not significantly changed since the previous exam from 1 week earlier. There is interval development of a small left-sided pleural effusion. The liver and spleen are unremarkable. The gallbladder has been surgically removed. The pancreas is unremarkable. Some fullness is seen in the left adrenal gland most compatible with left renal adenoma. No evidence of periaortic lymphadenopathy is seen. Aortic calcification is seen. There is a right i nfraumbilical small anterior abdominal wall hernia. No evidence of bowel obstruction is seen. Exten sive colonic diverticulosis is seen. The urinary bladder demonstrates no significant masses. There is more fluid within it compared to th e previous CT from 1 week earlier and, therefore, the wall was somewhat thinner, but no definite obvi ous mass is noted. Two cortical lesions are seen in the left kidney, 1 larger exophytic cyst while there is a second sli ghtly denser more anterior left renal lesion. Without IV contrast, I cannot exclude the possibility that one of these, especially the smaller lesion, may be a solid lesion with enhancement. IMPRESSION: Interval development of a small left-sided pleural effusion since the previous CT from 1 week earlier . No other significant interval change is seen. POS: [facility]
== END 2018-01-23 09:33 | disposition home or self-care (01) ==
LOC: CT 09:32
PROVIDERS: ATTEND Urology
DX: C67.0 Malignant neoplasm of trigone of bladder (principal); J90 Pleural effusion, not elsewhere classified
CPT/HCPCS: 74176; 81001; 82565; 88112

== ENCOUNTER 2019-01-14 12:02 | Inpatient (IN) | payer MEDICARE, MEDICAID ==
[2019-01-14] MEDS ORDERED: Magnesium 2 GM/50 ML BAG (IN WATER) ONE (12:18)
[2019-01-14 12:45] LABS: #Eosinphils 0.2 thou/uL (0.0-0.7); #Lymphocytes 1.8 thou/uL (1.20-3.40); #Monocytes 0.7 thou/uL (0.11-0.59); #Neutrophils 5.5 thou/uL (1.40-6.50); %Basophils 0.2 % (0.0-1.0); %Eosinophils 1.9 % (0.0-10.0); %Lymphocytes 21.6 % (21.0-51.0); %Monocytes 8.3 % (0.0-10.0); %Neutrophils 67.9 % (42.0-75.0); Hemoglobin 11.4 g/dL (12.0-16.0); Mean Corpuscular HGB CONC 32.6 g/dL (32.0-36.0); Mean Corpuscular Hemoglobin 28.6 pg (27.0-31.0); Mean Corpuscular Volume 87.7 fL (78.0-98.0); Mean Platelet Volume 9.3 fL (7.4-10.4); Platelet Count 180 thou/uL (130-400); RBC Distribution Width 14.9 % (11.5-14.5); Red Blood Cell (RBC) Count 3.99 mill/uL (4.20-5.40); White Blood Cell (WBC) Count 8.1 thou/uL (4.8-10.8)
[2019-01-14 13:07] LABS: ALT (SGPT) Less than 7 U/L (8-55); AST (SGOT) 11 U/L (5-34); Albumin 3.6 g/dL (3.4-4.8); Alkaline Phosphatase 114 U/L (40-150); Anion Gap 13 mmol/L (10-20); BUN (Urea Nitrogen) 35 mg/dL (9.8-20.1); Bilirubin, Total 0.4 mg/dL (0.2-1.2); Calc. Creatinine Clearance 0 mL/min (70-130); Calcium 8.5 mg/dL (7.8-10.44); Carbon Dioxide 22 mmol/L (23-31); Chloride 109 mmol/L (98-107); Estimated GFR-MDRD 20; Globulin 2.8 g/dL (2.4-3.5); Glucose 96 mg/dL (83-110); Potassium 4.6 mmol/L (3.5-5.1); Protein, Total 6.4 g/dL (6.0-8.3); Sodium 139 mmol/L (136-145)
--- NOTE | 2019-01-14 14:29 | RAD ---
PORTABLE CHEST 1 VIEW: DATE: 01/14/2019. TIME: 1:25 p.m. HISTORY: Shortness of breath, productive cough. FINDINGS/IMPRESSION: Comparison is made with the exam of 09/22/2018. The heart size is stable. The lungs are expanded with stable density in the lingula. No lobar conso lidation, pneumothoraces, or large effusions are seen. POS: [facility]
[2019-01-14] MEDS ORDERED: cefTRIAXone\\ROCEPHIN 1 GM VIAL ONE (14:33)
--- NOTE | 2019-01-14 15:34 | PDOC.FPRHP ---
- History of Present Illness Chief Complaint: SOB History of Present Illness: This is an 83 yo female with a pmh of COPD, CKDIII, HTN, DMII, and hypothyroidism who presents to the ED with a cc of sob. 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 She reports increased sputum production and a change in color. She reports previously having a nebulizer for breathing treatments but this was taken when she went off hospice. She uses an albuterol inhaler with questionable efficacy due to her dementia. SHe was recently treated with cipro for a UTI. 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 ED Course: Azithromycin Rocephin magnesium duoneb x3 125mg solumedrol en route - Allergies/Adverse Reactions Allergies Allergy/AdvReac Type Severity Reaction Status Date / Time No Known Allergies Allergy Verified 01/14/19 16:36 - Home Medications Medication Instructions Recorded Confirmed Type Levothyroxine Sodium 50 mcg PO DAILY 07/07/17 01/14/19 History Omeprazole 20 mg PO HS 07/07/17 01/14/19 History Atorvastatin Calcium 40 mg PO HS 09/19/17 01/14/19 History Cholecalciferol (Vitamin D3) 1,000 unit PO DAILY 09/19/17 01/14/19 History [Vitamin D3] Mirabegron [Myrbetriq ER] 25 mg PO HS 09/19/17 01/14/19 History Levemir Flexpen [Levemir FlexPen] 12 units SC HS 01/17/18 01/14/19 History Albuterol Sulfate [Proair HFA] 2 puff INH Q4HR PRN 01/14/19 01/14/19 History Amlodipine [Norvasc] 10 mg PO DAILY 01/14/19 01/14/19 History Docusate Sodium 100 mg PO DAILY PRN 01/14/19 01/14/19 History Donepezil HCl [Aricept] 5 mg PO HS 01/14/19 01/14/19 History Ferrous Sulfate 325 mg PO DAILY 01/14/19 01/14/19 History Gabapentin [Neurontin] 300 mg PO HS 01/14/19 01/14/19 History Gabapentin [Neurontin] 300 mg PO QAM 01/14/19 01/14/19 History HYDROcodone Bit/APAP 5/325 [[place]] 1 tab PO Q6HR PRN 01/14/19 01/14/19 History traMADol HCl [Tramadol HCl] 50 mg PO Q6HR PRN 01/14/19 01/14/19 History - History PMHx: hypothyroidism, COPD, CKD III, DMII, temporal arteritis PSHx: Hysterectomy, bladder cancer removal FHx:Parents had DMII Social: Denits current GALLO, former smoker - Review of Systems General: reports: fever/chills, fatigue. denies: weight/appetite/sleep changes , night sweats Eyes: denies: eye pain, vision changes ENT: denies: nasal congestion, rhinorrhea Respiratory: reports: cough, congestion, shortness of breath, exercise intolerance Cardiovascular: denies: chest pain, palpitation, edema, paroxysmal nocturnal dyspnea Gastrointestinal: denies: nausea, vomiting, diarrhea, constipation, abdominal pain Genitourinary: denies: incontinence, dysuria Skin: denies: rashes, lesions Musculoskeletal: denies: pain, tenderness Neurological: denies: numbness, syncope Psychological: denies: anxiety, depression - Vital signs BP: 134/59 HR: 79 RR: 19 Tmax: 98.4 Pox: 92% on ra Wt: 63.5 kg - Physical Exam Constitutional: NAD, awake, alert and oriented, well developed HEENT: normocephalic and atraumatic, PERRLA, EOMI, MMM Neck: trachea midline, no LAD, no JVD Chest: no-tender to palpation, no lesions Heart: RRR, normal S1/S2, no murmurs/rubs/gallops Lungs: other (Mild end expiratory wheezing, good air flow) Abdomen: soft, bowel sounds present, no masses/distention -Abdomen: Tenderness to palpation on left side, attributed to shingles, no rash present. Musculoskeletal: normal structure, ROM grossly normal Neurological: CN II-XII intact Skin: capillary refill <2 seconds Heme/Lymphatic: no unusual bruising or bleeding, no purpura Psychiatric: normal mood and affect, other (mild dementia with some difficulty with recal) FMR H&P: Results - Labs Result Diagrams: 01/14/19 12:35 01/14/19 12:35 Lab results: WBC 8.1 thou/uL (4.8-10.8) 01/14/19 12:35 Hgb 11.4 g/dL (12.0-16.0) L 01/14/19 12:35 Hct 35.0 % (36.0-47.0) L 01/14/19 12:35 MCV 87.7 fL (78.0-98.0) 01/14/19 12:35 Plt Count 180 thou/uL (130-400) 01/14/19 12:35 Neutrophils % 67.9 % (42.0-75.0) 01/14/19 12:35 Sodium 139 mmol/L (136-145) 01/14/19 12:35 Potassium 4.6 mmol/L (3.5-5.1) 01/14/19 12:35 Chloride 109 mmol/L (98-107) H 01/14/19 12:35 Carbon Dioxide 22 mmol/L (23-31) L 01/14/19 12:35 BUN 35 mg/dL (9.8-20.1) H 01/14/19 12:35 Creatinine 2.32 mg/dL (0.6-1.1) H 01/14/19 12:35 Glucose 96 mg/dL (83-110) 01/14/19 12:35 Calcium 8.5 mg/dL (7.8-10.44) 01/14/19 12:35 Total Bilirubin 0.4 mg/dL (0.2-1.2) 01/14/19 12:35 AST 11 U/L (5-34) 01/14/19 12:35 ALT Less than 7 U/L (8-55) L 01/14/19 12:35 Alkaline Phosphatase 114 U/L (40-150) 01/14/19 12:35 B-Natriuretic Peptide 101.6 pg/mL (0-100) H 01/14/19 12:35 Serum Total Protein 6.4 g/dL (6.0-8.3) 01/14/19 12:35 Albumin 3.6 g/dL (3.4-4.8) 01/14/19 12:35 Additional comment: Flu negative - Radiology Interpretation Chest x-ray Status: report reviewed by me (No acute intrathoracic processes) FMR H&P: A/P - Problem List (1) COPD exacerbation Current Visit: Yes Status: Acute Code(s): J44.1 - CHRONIC OBSTRUCTIVE PULMONARY DISEASE W (ACUTE) EXACERBATION (2) Acute kidney injury superimposed on chronic kidney disease Current Visit: Yes Status: Acute Code(s): N17.9 - ACUTE KIDNEY FAILURE, UNSPECIFIED; N18.9 - CHRONIC KIDNEY DISEASE, UNSPECIFIED (3) Dementia Current Visit: No Status: Chronic Code(s): F03.90 - UNSPECIFIED DEMENTIA WITHOUT BEHAVIORAL DISTURBANCE Qualifiers: Dementia type: unspecified type Dementia behavioral disturbance: without behavioral disturbance Qualified Code(s): F03.90 - Unspecified dementia without behavioral disturbance (4) Diabetes type 2, controlled Current Visit: No Status: Chronic Code(s): E11.9 - TYPE 2 DIABETES MELLITUS WITHOUT COMPLICATIONS Qualifiers: Diabetes mellitus fpc insulin use: with long term care pharmacist use Diabetes mellitus complication status: with unspecified complications Qualified Code(s) : E11.8 - Type 2 diabetes mellitus with unspecified complications; Z79.4 - care home (current) use of insulin; Z79.4 - care home (current) use of insulin; Z79.4 - emt intermediate (current) use of insulin; Z79.4 - care home (current) use of insulin (5) Dyslipidemia Current Visit: No Status: Chronic Code(s): E78.5 - HYPERLIPIDEMIA, UNSPECIFIED (6) Hypertension Current Visit: No Status: Chronic Code(s): I10 - ESSENTIAL (PRIMARY) HYPERTENSION Qualifiers: Hypertension type: essential hypertension Qualified Code(s): I10 - Essential (primary) hypertension (7) Hypothyroidism Current Visit: No Status: Chronic Code(s): E03.9 - HYPOTHYROIDISM, UNSPECIFIED Qualifiers: Hypothyroidism type: unspecified Qualified Code(s): E03.9 - Hypothyroidism , unspecified - Plan This is an 83 yo female with a pmh of COPD, CKDIII, HTN, DMII, and hypothyroidism COPD exacerbation -Admit to medical -Continue abx, dc if normal procal -PO prednisone -Félix and PRN duonebs -Pt will need prescription at discharge for nebulizer -CXR grossly normal, WBC wnl PAUL on CKD -Cr is 2.32 baseline is 1.9 -Creatinine clearance calculated at 22 -IV hydration, switch to PO when PAUL is improved DMII -Continue home levemir -A1c on 11/20/18 6.2 -SSI, ACHS accuchecks HTN -continue home meds Hypothyroidism -Continue home meds Code: DNAR Prophylaxis: lovenox Family: Daughter and granddaughter at bedside Diet: Renal, diabetic Disposition: home in 1-2 days PCP: Dr. Artemio Riley; YONY FMR H&P: Upper Level - Plan Date/Time: 01/14/19 1534 HPI This is a stable 83 yo F w/ PMH of COPD, CAD, dementia who is being admitted for COPD exacerbation. She comes in with productive cough and worsening SOB for the last 2 days. Patient is a former smoker, she quit 6 years ago, 1-2 ppd smoker for 40+ years. Patient is quite fatigued and needs assist with transfers. Daughter who is caregiver has been giving her albuterol but she has not been giving duonebs as she does not have the correct tubing. Patient is not short of breath when laying down, denies chest pain, and denies pleuiritc pain. Patient recently came off of hospice and lives at home with her daughter. A bowling pin refinisher care for her during the day and daughter cares for her at night. REVIEW OF SYSTEMS: Gen: no fever, chills, or sweats Neuro: mild occipital headache, no numbness/tingling, no weakness Eyes: no visual changes ENT: no hearing changes, no sore throat, no runny nose Resp: see hpi Card: no chest pain, no palpitations GI: no appetite change, no diarrhea or constipation, no nausea/vomiting, no blood in stool : no dysuria, no hematuria, no incontinence, no change in frequency MSK: no myalgias, no joint pain/stiffness Skin: no rash, no erythema PHYSICAL EXAMINATION: General: NAD, alert and oriented x3 HEENT: EOMI, normal sclera, oropharynx without erythema or exudate Neck: Supple. Full ROM. Heart/Cardiovascular System: No r/m/g. RRR. Cap refill < 3 seconds, good pulses in all extremities Lungs/Respiratory System: significant rales throughout, no crackles at bases, mild decreased air movement, no retractions, able to speak in complete phrases, mild exp wheeze Abdomen/Gastro-Intestinal System: non-tender, normal bowel sounds, no masses, no organomegaly Extremeties: Warm extremities. No cyanosis or edema. Neuro: No gross deficits appreciated. CN 2-12 grossly intact Psychiatry: Awake, Alert and cooperative with exam Skin/ Integumentory: No lesions, rashes, or ulcers PROBLEM LISTANDPLAN: # COPD exacerbation - Azithro, Rocephin, prednisone, duoneb - PRN o2 # PAUL - Cr 2.32, baseline 1.5 - Maintenance fluids # Deconditioning - PT/OT # DM - Home Levemir, SSI # Dementia - Appears to be at baseline # Hx of CAD # Hx of shingles # Previous hospice - Does not want aggressive treatment, desires to leave hospital CARI Fluids: 100ml/hr Diet: regular Code: DNR/DNI Consults: none DVT Ppx: heparin Dispo: 1-2 days pending course
[2019-01-14] MEDS ORDERED: Azithromycin 500 MG VIAL ONE (15:44)
[2019-01-14] MEDS ORDERED: guaiFENesin 200 MG TAB PO PRN (16:18)
[2019-01-14] MEDS ORDERED: Ondansetron ODT 4 MG TAB PO PRN (16:18)
[2019-01-14 16:23] VITALS: BMI 34.7
[2019-01-14] MEDS: Lactated Ringer's 1,000 ML IV SCH (17:34)
[2019-01-14] MEDS: Heparin 5,000 UNITS/ML VIAL SC SCH (20:43)
[2019-01-15] MEDS: Lactated Ringer's 1,000 ML IV SCH ×3 (02:21→23:10)
[2019-01-15 07:46] LABS: #Lymphocytes 0.7 thou/uL (1.20-3.40); #Monocytes 0.5 thou/uL (0.11-0.59); %Eosinophils 0.1 % (0.0-10.0); %Monocytes 7.1 % (0.0-10.0); %Neutrophils 82.8 % (42.0-75.0); Hemoglobin 10.3 g/dL (12.0-16.0); Mean Corpuscular HGB CONC 33.1 g/dL (32.0-36.0); Mean Corpuscular Hemoglobin 28.3 pg (27.0-31.0); Mean Corpuscular Volume 85.6 fL (78.0-98.0); Mean Platelet Volume 8.7 fL (7.4-10.4); Platelet Count 196 thou/uL (130-400); RBC Distribution Width 14.8 % (11.5-14.5); Red Blood Cell (RBC) Count 3.63 mill/uL (4.20-5.40); White Blood Cell (WBC) Count 7.3 thou/uL (4.8-10.8)
[2019-01-15] MEDS: Heparin 5,000 UNITS/ML VIAL SC SCH ×3 (07:47→20:01)
[2019-01-15] MEDS: Azithromycin 250 MG TAB PO SCH (07:47)
[2019-01-15] MEDS: predniSONE 20 MG TAB PO SCH (07:47)
[2019-01-15 08:05] LABS: Anion Gap 12 mmol/L (10-20); BUN (Urea Nitrogen) 34 mg/dL (9.8-20.1); Calc. Creatinine Clearance 25 mL/min (70-130); Calcium 8.8 mg/dL (7.8-10.44); Carbon Dioxide 22 mmol/L (23-31); Chloride 109 mmol/L (98-107); Estimated GFR-MDRD 24; Glucose 179 mg/dL (83-110); Potassium 3.8 mmol/L (3.5-5.1); Sodium 139 mmol/L (136-145)
--- NOTE | 2019-01-15 08:51 | PDOC.FM ---
- Subjective Subjective: This morning patient states she is feeling somewhat better. Still tired with sitting up. States her cough is improved and she wants to go home because she does not like hospitals. Discussed importance of staying to get her stronger and she agreed. Denies CP, palpiations, N/V/D. - Objective Vital Signs & Weight: Vital Signs (12 hours) Temp Pulse Resp BP Pulse Ox 01/15/19 07:55 97.8 F 81 20 123/65 94 L 01/15/19 06:30 85 18 97 01/15/19 04:00 98.1 F 88 18 128/68 92 L 01/15/19 03:19 84 18 93 L 01/14/19 22:57 80 18 95 Weight Weight 72.688 kg I&O: 01/14/19 01/15/19 01/16/19 06:59 06:59 06:59 Intake Total 1294 Balance 1294 Result Diagrams: 01/15/19 07:16 01/15/19 07:16 Phys Exam - Physical Examination Constitutional: NAD HEENT: moist MMs, sclera anicteric Neck: no nodes rales throught, no resp distress, exp wheezes throughout Cardiovascular: RRR, no significant murmur Gastrointestinal: soft, non-tender, no distention, positive bowel sounds Musculoskeletal: no edema, pulses present Neurological: non-focal, moves all 4 limbs Psychiatric: normal affect, A&O x 3 Skin: no rash, cap refill <2 seconds Dx/Plan (1) Acute kidney injury superimposed on chronic kidney disease Code(s): N17.9 - ACUTE KIDNEY FAILURE, UNSPECIFIED; N18.9 - CHRONIC KIDNEY DISEASE, UNSPECIFIED Status: Acute (2) COPD exacerbation Code(s): J44.1 - CHRONIC OBSTRUCTIVE PULMONARY DISEASE W (ACUTE) EXACERBATION Status: Acute (3) Dementia Code(s): F03.90 - UNSPECIFIED DEMENTIA WITHOUT BEHAVIORAL DISTURBANCE Status: Chronic Qualifiers: Dementia type: unspecified type Dementia behavioral disturbance: without behavioral disturbance Qualified Code(s): F03.90 - Unspecified dementia without behavioral disturbance (4) Diabetes type 2, controlled Code(s): E11.9 - TYPE 2 DIABETES MELLITUS WITHOUT COMPLICATIONS Status: Chronic Qualifiers: Diabetes mellitus salvage determiner insulin use: with usp use Diabetes mellitus complication status: with unspecified complications Qualified Code(s) : E11.8 - Type 2 diabetes mellitus with unspecified complications; Z79.4 - emt intermediate (current) use of insulin; Z79.4 - emt intermediate (current) use of insulin; Z79.4 - emt intermediate (current) use of insulin; Z79.4 - intermediate (current) use of insulin - Plan Plan: # COPD exacerbation - Azithro, Rocephin, prednisone, duoneb q4 gabbi - PRN o2, on RA this AM # PAUL - Cr 2.32-> 1.99, baseline 1.5 - decreased fluids to 70 ml/hr # Deconditioning - PT/OT # DM - Home Levemir, SSI # Dementia - Appears to be at baseline # Hx of CAD # Hx of shingles # Previous hospice - Does not want aggressive treatment, desires to leave hospital CARI Fluids: 70 ml/hr Diet: regular Code: DNR/DNI Consults: none DVT Ppx: heparin Dispo: 1-2 days Addendum - Attending - Attending Attestation Date/Time: 01/15/19 1250 I personally evaluated the patient and discussed the management with Dr. Márquez. I agree with the History, Examination, Assessment and Plan documented above with any addition or exceptions noted below. Pt with copd exacerbation. She is still wheezing. Will continue nebs, steroids and antibiotics.
--- NOTE | 2019-01-15 12:24 | HP ---
I have examined the patient on the afternoon of January 14, 2019 at approximately 4:30 p.m. I have discussed the case with Dr. Maxwell and I agree with his assessment and plan. Briefly, she is an 83-year-old white female with a significant past history of heavy smoking and COPD, who presented to the emergency department with shortness of breath of 3 days' duration. She has had increased sputum production, but no documented fever. PHYSICAL EXAMINATION: VITAL SIGNS: Her blood pressure was 130/65, heart rate was 78, respirations were 18, she was afebrile, and her room air pulse ox was 92%. GENERAL: Ms. Azul was awake, alert, in no distress. No use of accessory muscles. EAR, NOSE, AND THROAT: No erythema or exudate. NECK: Supple. CARDIAC: Heart sounds are distant. No gallop or murmur noted. LUNGS: Breath sounds diminished. Currently, no wheezing. No respiratory distress or use of accessory muscles. ABDOMEN: Obese, but flat and soft. No guarding or rebound. NEUROLOGICAL: No focal deficits. LABORATORY DATA: White count is 8100, hemoglobin 11.4, hematocrit 35 with an MCV of 87.7. Chemistries; sodium 139, potassium 4.6, chloride 109, bicarb 22, BUN was 35, and creatinine 2.32. Liver enzymes normal. Troponin less than 0.01. IMAGING DATA: Chest x-ray, heart status was stable. The lungs are expanded with a stable density in the lingula. No lobar consolidation, pneumothorax, or effusion. ASSESSMENT: Exacerbation of chronic obstructive pulmonary disease. PLAN: Admit, Yareli, steroids, follow. Job ID: [id number]
[2019-01-15] MEDS: cefTRIAXone\\ROCEPHIN 1 GM in Sodium Chloride 0.9% 100 ML IVPB SCH (14:51)
[2019-01-15] MEDS ORDERED: Dextrose 5% in Water 1,000 ML IV PRN (15:51)
[2019-01-15] MEDS ORDERED: Dextrose 50% Abboject 50 ML SYRINGE SLOW IVP PRN (15:51)
[2019-01-15] MEDS: HumaLOG 300 UNITS/3 ML VIAL SC PRN (20:01)
[2019-01-15] MEDS: Acetaminophen 325 MG TAB PO PRN (20:02)
[2019-01-15] MEDS ORDERED: LEVEMIR 12 UNIT SC SCH (21:00)
[2019-01-15] MEDS: Gabapentin 300 MG CAP PO SCH (21:08)
[2019-01-15] MEDS: Atorvastatin Calcium 40 MG TAB PO SCH (21:08)
[2019-01-15] MEDS: Insulin Glargine 12 UNITS in Pre-Filled Syringe 1 EACH SC SCH (23:17)
[2019-01-16] MEDS: Levothyroxine Sodium 50 MCG TAB PO SCH (05:46)
[2019-01-16 06:55] LABS: Anion Gap 14 mmol/L (10-20); BUN (Urea Nitrogen) 30 mg/dL (9.8-20.1); Calc. Creatinine Clearance 28 mL/min (70-130); Calcium 8.7 mg/dL (7.8-10.44); Carbon Dioxide 22 mmol/L (23-31); Chloride 114 mmol/L (98-107); Estimated GFR-MDRD 27; Glucose 108 mg/dL (83-110); Potassium 4.1 mmol/L (3.5-5.1); Sodium 146 mmol/L (136-145)
[2019-01-16] MEDS: Ferrous Sulfate 325 MG TAB PO SCH (07:41)
[2019-01-16] MEDS: predniSONE 20 MG TAB PO SCH (07:41)
[2019-01-16] MEDS: Gabapentin 300 MG CAP PO SCH ×2 (07:41→20:54)
[2019-01-16] MEDS: Heparin 5,000 UNITS/ML VIAL SC SCH ×3 (07:42→20:55)
[2019-01-16] MEDS: Lactated Ringer's 1,000 ML IV SCH (07:42)
[2019-01-16] MEDS: Amlodipine 10 MG TAB PO SCH (07:42)
[2019-01-16] MEDS: Azithromycin 250 MG TAB PO SCH (07:42)
--- NOTE | 2019-01-16 08:57 | PDOC.FM ---
- Subjective Subjective: This morning patient is sleeping comfortably. She denies shortness of breath or cough overnight. STates she wants to go home today. Denies pain, N/V/D, or decreased appetite. - Objective Vital Signs & Weight: Vital Signs (12 hours) Temp Pulse Resp BP Pulse Ox 01/16/19 07:42 88 01/16/19 07:38 98.4 F 88 18 110/50 L 92 L 01/16/19 06:53 73 16 94 L Weight Weight 72.688 kg I&O: 01/15/19 01/16/19 01/17/19 06:59 06:59 06:59 Intake Total 1294 2060 Balance 1294 0 Result Diagrams: 01/15/19 07:16 01/16/19 06:07 Phys Exam - Physical Examination Constitutional: NAD HEENT: moist MMs, sclera anicteric exp wheeze bilaterally, no respiratory disress, mild wheezes Cardiovascular: RRR, no rub 2/6 murmur Gastrointestinal: soft, non-tender, no distention, positive bowel sounds Musculoskeletal: no edema, pulses present Neurological: non-focal, moves all 4 limbs Skin: no rash, cap refill <2 seconds Dx/Plan (1) Acute kidney injury superimposed on chronic kidney disease Code(s): N17.9 - ACUTE KIDNEY FAILURE, UNSPECIFIED; N18.9 - CHRONIC KIDNEY DISEASE, UNSPECIFIED Status: Acute (2) COPD exacerbation Code(s): J44.1 - CHRONIC OBSTRUCTIVE PULMONARY DISEASE W (ACUTE) EXACERBATION Status: Acute (3) Dementia Code(s): F03.90 - UNSPECIFIED DEMENTIA WITHOUT BEHAVIORAL DISTURBANCE Status: Chronic Qualifiers: Dementia type: unspecified type Dementia behavioral disturbance: without behavioral disturbance Qualified Code(s): F03.90 - Unspecified dementia without behavioral disturbance (4) Diabetes type 2, controlled Code(s): E11.9 - TYPE 2 DIABETES MELLITUS WITHOUT COMPLICATIONS Status: Chronic Qualifiers: Diabetes mellitus retirement insulin use: with watermaster use Diabetes mellitus complication status: with unspecified complications Qualified Code(s) : E11.8 - Type 2 diabetes mellitus with unspecified complications; Z79.4 - skilled nursing (current) use of insulin; Z79.4 - skilled nursing (current) use of insulin; Z79.4 - termite treater helper (current) use of insulin; Z79.4 - termite treater helper (current) use of insulin - Plan Plan: # COPD exacerbation - Azithro, Rocephin, prednisone, duoneb q4 gabbi - PRN o2, on RA this AM # PAUL - Cr 2.32-> 1.99-> 1.79, baseline 1.5 - decreased fluids to 70 ml/hr # Deconditioning - PT/OT # DM - Home Levemir, SSI # Dementia - Appears to be at baseline # Hx of CAD # Hx of shingles # Previous hospice - Does not want aggressive treatment, desires to leave hospital CARI Fluids: 70 ml/hr Diet: regular Code: DNR/DNI Consults: none DVT Ppx: heparin Dispo: will f/u with daughter for goals of care Addendum - Attending - Attending Attestation Date/Time: 01/16/191942 I personally evaluated the patient and discussed the management with Dr. Márquez. I agree with the History, Examination, Assessment and Plan documented above with any addition or exceptions noted below. The patient is still wheezing. O2 sats are 92%. Pt's son is at the bedside and has convinced his mom that she should stay for another night and she is in agreement. She would benefit from additional nebs, steroids.
[2019-01-16] MEDS: HumaLOG 300 UNITS/3 ML VIAL SC PRN ×2 (12:27→16:31)
[2019-01-16] MEDS: cefTRIAXone\\ROCEPHIN 1 GM in Sodium Chloride 0.9% 100 ML IVPB SCH (14:27)
[2019-01-16] MEDS: Atorvastatin Calcium 40 MG TAB PO SCH (20:54)
[2019-01-16] MEDS: Insulin Glargine 12 UNITS in Pre-Filled Syringe 1 EACH SC SCH (20:55)
[2019-01-17] MEDS: Acetaminophen 325 MG TAB PO PRN (04:16)
[2019-01-17] MEDS: Lactated Ringer's 1,000 ML IV SCH (04:16)
[2019-01-17] MEDS: Levothyroxine Sodium 50 MCG TAB PO SCH (04:16)
[2019-01-17 06:57] LABS: Anion Gap 12 mmol/L (10-20); BUN (Urea Nitrogen) 23 mg/dL (9.8-20.1); Calc. Creatinine Clearance 32 mL/min (70-130); Calcium 8.6 mg/dL (7.8-10.44); Carbon Dioxide 23 mmol/L (23-31); Chloride 111 mmol/L (98-107); Estimated GFR-MDRD 31; Glucose 90 mg/dL (83-110); Potassium 3.4 mmol/L (3.5-5.1); Sodium 143 mmol/L (136-145)
--- NOTE | 2019-01-17 07:16 | PDOC.FM ---
- Subjective Subjective: This morning patient is feeling better. She denies couging overnight and states her breathing is much imrpoved. She is able to sit up on her own but only walks with assistance of PT. Patient would benefit from hospital bed at home, she was previously on hospice and is cared for at home by family. She is unable to stand on her own. - Objective Vital Signs & Weight: Vital Signs (12 hours) Temp Pulse Resp BP Pulse Ox 01/17/19 04:00 98.1 F 80 20 147/78 H 98 01/16/19 19:22 97.6 F 86 18 149/70 H 95 Weight Weight 72.688 kg I&O: 01/16/19 01/17/19 01/18/19 06:59 06:59 06:59 Intake Total 2059 1400 Balance 2059 1400 Result Diagrams: 01/15/19 07:16 01/17/19 05:41 Phys Exam - Physical Examination Constitutional: NAD HEENT: moist MMs, sclera anicteric Respiratory: no rales, no rhonchi exp wheezes mild Cardiovascular: RRR, no significant murmur, no rub Gastrointestinal: soft, non-tender, no distention, positive bowel sounds Musculoskeletal: no edema, pulses present Neurological: non-focal, moves all 4 limbs Psychiatric: normal affect, A&O x 3 Skin: no rash, cap refill <2 seconds Dx/Plan (1) Acute kidney injury superimposed on chronic kidney disease Code(s): N17.9 - ACUTE KIDNEY FAILURE, UNSPECIFIED; N18.9 - CHRONIC KIDNEY DISEASE, UNSPECIFIED Status: Acute (2) COPD exacerbation Code(s): J44.1 - CHRONIC OBSTRUCTIVE PULMONARY DISEASE W (ACUTE) EXACERBATION Status: Acute (3) Dementia Code(s): F03.90 - UNSPECIFIED DEMENTIA WITHOUT BEHAVIORAL DISTURBANCE Status: Chronic Qualifiers: Dementia type: unspecified type Dementia behavioral disturbance: without behavioral disturbance Qualified Code(s): F03.90 - Unspecified dementia without behavioral disturbance (4) Diabetes type 2, controlled Code(s): E11.9 - TYPE 2 DIABETES MELLITUS WITHOUT COMPLICATIONS Status: Chronic Qualifiers: Diabetes mellitus retirement insulin use: with retirement use Diabetes mellitus complication status: with unspecified complications Qualified Code(s) : E11.8 - Type 2 diabetes mellitus with unspecified complications; Z79.4 - longterm (current) use of insulin; Z79.4 - longterm (current) use of insulin; Z79.4 - longterm (current) use of insulin; Z79.4 - fraternity adviser (current) use of insulin - Plan Plan: # COPD exacerbation - Azithro, Rocephin, prednisone, duoneb q4 gabbi - PRN o2, on RA this AM - will send patient home with nebulizer machine - will fill out request for hospital bed as patient would benefit # PAUL - Cr 2.32-> 1.99-> 1.79, baseline 1.5 - decreased fluids to 70 ml/hr # Deconditioning - PT/OT # DM - Home Levemir, SSI # Dementia - Appears to be at baseline # Hx of CAD # Hx of shingles # Previous hospice - Does not want aggressive treatment, desires to leave hospital CARI Fluids: 70 ml/hr Diet: regular Code: DNR/DNI Consults: none DVT Ppx: heparin Dispo: anticipate home today Addendum - Attending - Attending Attestation Date/Time: 01/17/19 1034 I personally evaluated the patient and discussed the management with Dr. Márquez. I agree with the History, Examination, Assessment and Plan documented above with any addition or exceptions noted below. The patient is feeling better. Her wheezing is much better. She is up in a chair. Patient is stable for discharge.
[2019-01-17] MEDS: predniSONE 20 MG TAB PO SCH (08:14)
[2019-01-17] MEDS: Ferrous Sulfate 325 MG TAB PO SCH (08:15)
[2019-01-17] MEDS: Amlodipine 10 MG TAB PO SCH (08:15)
[2019-01-17] MEDS: Heparin 5,000 UNITS/ML VIAL SC SCH (08:15)
[2019-01-17] MEDS: Gabapentin 300 MG CAP PO SCH (08:15)
[2019-01-17] MEDS: Azithromycin 250 MG TAB PO SCH (08:15)
[2019-01-17 08:24] VITALS: BP 153/72; TEMP 97.5
--- NOTE | 2019-01-17 17:07 | DIS ---
DATE OF ADMISSION: 01/15/2019 DATE OF DISCHARGE: 01/17/2019 RESIDENT: Tray Márquez MD ADMITTING ATTENDING: Kai Bui MD DISCHARGE ATTENDING: Amrita Agosto MD CONSULTS: None. PROCEDURES: None. PRIMARY DIAGNOSIS: Chronic obstructive pulmonary disease exacerbation. SECONDARY DIAGNOSES: Acute kidney injury, deconditioning, diabetes mellitus, dementia, history of coronary artery disease, history of shingles, previous hospice. DISCHARGE MEDICATIONS: New medications: 1. Augmentin p.o. b.i.d. for 7 days. 2. Prednisone 40 mg p.o. daily for 5 days. 3. Nebulizer machine and equipment. 4. DuoNeb q.6 hours p.r.n. 5. Symmetric request for hospital bed. 6. No changes to home medications. 7. Amlodipine 10 mg daily. 8. Atorvastatin 40 mg daily. 9. Vitamin D. 10. Iron. 11. Gabapentin 300 mg b.i.d. 12. Levothyroxine 50 mcg daily. 13. Mirabegron 25 mg daily. 14. Omeprazole 20 mg daily. 15. Albuterol p.r.n. 16. Docusate 100 mg daily. 17. Donepezil 500 mg daily. 18. [place] 1 tab q.6 hours p.r.n. for pain. 19. Levemir 12 units daily. DISCONTINUED MEDICATIONS: None. HISTORY OF PRESENT ILLNESS/HOSPITAL COURSE: This is an 83-year-old female, who presented to the ER with two days of worsening cough and shortness of breath. She was previously on hospice but then was living longer than 6 months, so came off hospice. She has past medical history of COPD, CKD 3, hypertension, DM 2, and hypothyroidism. She reported increased sputum production. Over the next two days, the patient received scheduled nebulizers as well as p.o. steroids during the hospitalization. Her breathing status improved significantly by the time of discharge. She was also treated with Rocephin and azithromycin while inpatient and sent home with Augmentin. She is also given a script for home nebulizer machine and equipment. A request for hospital bed was submitted. The insurance company will call PCP for a doc to doc per report of behavioral health case manager. The patient's PAUL improved throughout the course of the hospitalization. DISPOSITION: Stable. DISCHARGE INSTRUCTIONS: 1. Location: Home. 2. Diet: Regular. 3. Activity: As tolerated. 4. Followup: Dr. Artemio Riley, called the clinic to have them schedule a hospital followup. Job ID: [id number] MTDD
== END 2019-01-17 11:36 | disposition home or self-care (01) | DRG 191 ==
LOC: ERS 12:02 → T4-A 14:33 → OBSVTOIN 01-15 10:26
PROVIDERS: ADMIT Family Medicine; ATTEND Family Medicine
DX: J44.1 Chronic obstructive pulmonary disease with (acute) exacerbation (principal); N17.9 Acute kidney failure, unspecified; Z66 Do not resuscitate; E11.22 Type 2 diabetes mellitus with diabetic chronic kidney disease; N18.3 Chronic kidney disease, stage 3 (moderate); I12.9 Hypertensive chronic kidney disease with stage 1 through stage 4 chronic kidney disease, or unspecified chronic kidney disease; E03.9 Hypothyroidism, unspecified; F03.90 Unspecified dementia, unspecified severity, without behavioral disturbance, psychotic disturbance, mood disturbance, and anxiety; E78.5 Hyperlipidemia, unspecified; I25.10 Atherosclerotic heart disease of native coronary artery without angina pectoris; Z79.899 Other long term (current) drug therapy; Z90.710 Acquired absence of both cervix and uterus; Z87.891 Personal history of nicotine dependence; Z79.4 Long term (current) use of insulin
CPT/HCPCS: 36415; 36416; 71045; 80048; 80053; 83880; 84145; 84484; 85025; 85652; 87040; 87149; 87804; 93005; 94640; 96365; 96367; J0456; J0696; J1644; J1825; J3475; J7050; J7620

== ENCOUNTER 2020-01-27 16:40 | Inpatient (IN) | payer MEDICARE, MEDICAID ==
[~2020-01-27 16:40] MED LIST: Heparin 1,000 UNITS/ML VIAL ONE
[2020-01-27 18:55] LABS: #Eosinphils 0.2 thou/uL (0.0-0.7); #Lymphocytes 1.9 thou/uL (1.20-3.40); #Monocytes 0.9 thou/uL (0.11-0.59); #Neutrophils 9.4 thou/uL (1.40-6.50); %Basophils 0.3 % (0.0-1.0); %Eosinophils 1.6 % (0.0-10.0); %Lymphocytes 15.3 % (21.0-51.0); %Monocytes 7.6 % (0.0-10.0); %Neutrophils 75.2 % (42.0-75.0); Hemoglobin 13.1 g/dL (12.0-16.0); Mean Corpuscular HGB CONC 32.2 g/dL (32.0-36.0); Mean Corpuscular Hemoglobin 29.5 pg (27.0-31.0); Mean Corpuscular Volume 91.8 fL (78.0-98.0); Mean Platelet Volume 8.4 fL (7.4-10.4); Platelet Count 192 thou/uL (130-400); RBC Distribution Width 13.6 % (11.5-14.5); Red Blood Cell (RBC) Count 4.44 mill/uL (4.20-5.40); White Blood Cell (WBC) Count 12.5 thou/uL (4.8-10.8)
[2020-01-27 19:03] LABS: INR-International Normal Ratio 0.9; PTT 23.4 SEC (22.9-36.1); Prothrombin Time 12.6 SEC (12.0-14.7)
[2020-01-27 19:18] LABS: ALT (SGPT) 7 U/L (8-55); AST (SGOT) 7 U/L (5-34); Albumin 3.7 g/dL (3.4-4.8); Alkaline Phosphatase 159 U/L (40-110); Anion Gap 16 mmol/L (10-20); BUN (Urea Nitrogen) 24 mg/dL (9.8-20.1); Bilirubin, Total 0.6 mg/dL (0.2-1.2); Calc. Creatinine Clearance 0 mL/min (70-130); Calcium 8.9 mg/dL (7.8-10.44); Carbon Dioxide 18 mmol/L (23-31); Chloride 105 mmol/L (98-107); Estimated GFR-MDRD 19; Globulin 3.6 g/dL (2.4-3.5); Glucose 125 mg/dL (83-110); Potassium 4.6 mmol/L (3.5-5.1); Protein, Total 7.3 g/dL (6.0-8.3); Sodium 134 mmol/L (136-145)
--- NOTE | 2020-01-27 19:48 | CT ---
CT abdomen and pelvis noncontrast HISTORY: Hematuria. Bladder cancer. COMPARISON: 01/23/2018. FINDINGS: At the left anterolateral lung base, there are 2 subpleural nodules, each measuring 0.4 cm greatest diameter. Slightly more pronounced than on the prior study. Left pleural fluid is no longer visible. Each renal collecting system and ureter are decompressed without stone evident. Lack of contrast limits evaluation of the soft tissues. There is a small hiatal hernia. Prominent chay cification throughout the arterial structures. Gallbladder is surgically absent. Small adenoma of the left adrenal gland is stable. Cortical cyst of the left kidney measures up to 5.0 cm greatest nash meter on today's study. There is diffuse atrophy of the cortex of each kidney. Diverticula arise from the colon without focal inflammation. There is subtle fatty infiltration of th e right colon. Urinary bladder shows small pockets of gas scattered diffusely throughout the thickened wall. Fluid a nd air are present within the lumen. At the right posterior wall, a focal masslike soft tissue density is 2.1 cm greatest oblique diameter. There is minimal stranding in the fat immediately adjace nt to the abnormal urinary bladder wall. Prominent degenerative changes throughout the lumbar spine. 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 Intraluminal gas is also present, possibly related to recent instrumentation. Oval soft tissue density lesion, 2.1 cm, along the right posterolateral lower bladder wall may represent a historically stated neoplasm. Prominent atherosclerosis. Small hiatal hernia. Diverticulosis. No evidence of diverticulitis.
[2020-01-27 20:23] LABS: Bacteria/HPF 4+ HPF (None Seen); Bilirubin Negative (Negative); Blood, Urine 3+ (Negative); Clarity Extra Turbid (Clear); Glucose, Urine (Dipstick) Normal (Negative); Leukocyte 500 Leu/uL (Negative); Nitrite Negative (Negative); Protein, Urine (Dipstick) 200 mg/dL (Neg-Trace); RBC/HPF Greater than 50 HPF (0-3); Squamous Epithelial None Seen HPF (0-3); WBC/HPF Greater than 50 HPF (0-3)
[2020-01-27] MEDS ORDERED: Ondansetron PF 4 MG/2 ML Vial ONE (21:23)
[2020-01-27] MEDS ORDERED: Morphine 4 MG/ML VIAL ONE (21:23)
[2020-01-27] MEDS ORDERED: cefTRIAXone\\ROCEPHIN 2 GM VIAL ONE (21:23)
[2020-01-28 00:34] VITALS: BMI 35.5
[2020-01-28] MEDS: Sodium Chloride 0.9% 1,000 ML IV SCH ×3 (01:25→15:31)
[2020-01-28] MEDS ORDERED: Dextrose 50% Abboject 50 ML SYRINGE SLOW IVP PRN (01:29)
[2020-01-28] MEDS ORDERED: HumaLOG 300 UNITS/3 ML VIAL SC PRN ×2 (01:29)
[2020-01-28] MEDS ORDERED: Dextrose 5% in Water 1,000 ML IV PRN (01:29)
[2020-01-28] MEDS ORDERED: Ondansetron PF 4 MG/2 ML Vial IVP PRN (01:30)
[2020-01-28] MEDS ORDERED: Ondansetron ODT 4 MG TAB PO PRN (01:30)
[2020-01-28] MEDS ORDERED: Ondansetron PF 4 MG/2 ML Vial IVP SCH (02:00)
--- NOTE | 2020-01-28 02:21 | PDOC.HHP ---
Hospitalist HPI - History of Present Illness Dysuria, hematuria History of Present Illness: PCP: Dr. Riley The H&P was taken from the patient's daughter, Chris Glass via telephone. The patient is an 84/F with PMH significant for bladder CA, DMII and dementia that presents to the ER for the above complaint. Reports that the patient developed intermittent hematuria over the past week. Describes as intermittent, light pink and has been bright red at times. Denies any clots. Denies any chest pain, light headedness or sob. Reports the patient developed dysuria and some generalized malaise over the past 3 days with associate pelvic discomfort, denies any nausea, vomiting, diarrhea/constipation. Denies fever or chills. The patient was diagnosed with bladder cancer approximately 6 years ago. Reports treated medically by Dr. Valverde 2 years ago, as the patient is not a surgical candidate. Denies having radiation or chemotherapy in the past. Apparently she has been cancer free for the past two years. ED Course: VS 160/87, HR 74, RR 18, Sp02 94%RA, T 97.8F CT abd/pelvis showed abnormal urinary bladder with appearance of emphysematous cystitis, oval soft tissue mass density lesion 2.1 cm along right posterolateral bladder wall which may represent stated neoplasm. UA turbid, blood, leukocyte esterase, 4+ bacteria, WBCs > 50 Na 134 BUN 24 Creatinine 2.41 GFR 19 Hbg 13.1 Hct 40.7 Given Rocephin 2gm IVPB 1 L NS Zofran and morphine Hospitalist ROS - Review of Systems Constitutional: reports: malaise. denies: fever, chills Eyes: denies: pain, vision change, conjunctivae inflammation, eyelid inflammation, redness, other ENT: denies: ear pain, ear discharge, nose pain, nose discharge, nose congestion , mouth pain, mouth swelling, throat pain, throat swelling, other Respiratory: denies: cough, dry, shortness of breath, hemoptysis, SOB with excertion, pleuritic pain, sputum, wheezing, other Cardiovascular: denies: chest pain, palpitations, orthopnea, paroxysmal noc. dyspnea, edema, light headedness, other Gastrointestinal: reports: abdominal pain (generalized pelvic pain). denies: nausea, vomiting, diarrhea, constipation, melena, hematochezia Genitourinary: reports: dysuria, frequency, hematuria Neurological: denies: numbness, incoordination, change in speech Hospitalist History - Past Medical History Source: family Cardiac: reports: HTN (does not take medications), Hyperlipidemia CRM SPECIALIST: reports: Dementia Gastrointestinal: reports: GERD Renal/: reports: Other (bladder cancer) Endocrine: reports: Diabetes (Type II), Hypothyroidism - Past Surgical History Past Surgical History: reports: , Hysterectomy, Other - Family History Other Family History: non contributory for bladder CA - Social History Smoking Status: Former smoker (quit 6-10 years ago) Alcohol: reports: None Drugs: reports: none Living Situation: With Family Occupation: Lives with daughter at home Activity level: independent ambulation - Exam General Appearance: NAD, awake alert General - other findings: oriented to person, place and Eye: anicteric sclera ENT: normocephalic atraumatic Neck: supple, no JVD Heart: RRR, no murmur, no gallops, no rubs, normal peripheral pulses Respiratory: CTAB, no wheezes, no rales, no ronchi, no tachypnea Gastrointestinal: soft, normal bowel sounds, no bruit, no guarding, no rigidity , distended Extremities: no cyanosis, no edema Extremities - other findings: moderately tender to palpation of LLE curiel Neurological: no focal deficits Psychiatric: normal affect, oriented to person, oriented to place Psychiatric - other findings: baseline per daughter Hospitalist Results - Labs Result Diagrams: 01/27/20 18:47 01/27/20 18:47 Lab results: WBC 12.5 thou/uL (4.8-10.8) H 01/27/20 18:47 Hgb 13.1 g/dL (12.0-16.0) 01/27/20 18:47 Hct 40.7 % (36.0-47.0) 01/27/20 18:47 MCV 91.8 fL (78.0-98.0) 01/27/20 18:47 Plt Count 192 thou/uL (130-400) 01/27/20 18:47 Neutrophils % 75.2 % (42.0-75.0) H 01/27/20 18:47 Sodium 134 mmol/L (136-145) L 01/27/20 18:47 Potassium 4.6 mmol/L (3.5-5.1) 01/27/20 18:47 Chloride 105 mmol/L (98-107) 01/27/20 18:47 Carbon Dioxide 18 mmol/L (23-31) L 01/27/20 18:47 BUN 24 mg/dL (9.8-20.1) H 01/27/20 18:47 Creatinine 2.41 mg/dL (0.6-1.1) H 01/27/20 18:47 Glucose 125 mg/dL (83-110) H 01/27/20 18:47 Calcium 8.9 mg/dL (7.8-10.44) 01/27/20 18:47 Total Bilirubin 0.6 mg/dL (0.2-1.2) 01/27/20 18:47 AST 7 U/L (5-34) 01/27/20 18:47 ALT 7 U/L (8-55) L 01/27/20 18:47 Alkaline Phosphatase 159 U/L (40-110) H 01/27/20 18:47 Serum Total Protein 7.3 g/dL (6.0-8.3) 01/27/20 18:47 Albumin 3.7 g/dL (3.4-4.8) 01/27/20 18:47 Urine Ketones Trace mg/dL (Negative) A 01/27/20 20:10 Urine Blood 3+ (Negative) A 01/27/20 20:10 Urine Nitrite Negative (Negative) 01/27/20 20:10 Ur Leukocyte Esterase 500 Leah/uL (Negative) A 01/27/20 20:10 Urine RBC Greater than 50 HPF (0-3) A 01/27/20 20:10 Urine WBC Greater than 50 HPF (0-3) A 01/27/20 20:10 Ur Squamous Epith Cells None Seen HPF (0-3) 01/27/20 20:10 Urine Bacteria 4+ HPF (None Seen) A 01/27/20 20:10 - Radiology Interpretation CT scan - abdomen Status: report reviewed by me Hospitalist H&P A/P - Problem (1) UTI (urinary tract infection) Status: Acute Assessment and Plan: Admit to medical floor, inpatient status Expected length of stay at least 2 midnights Patient due to void, bladder scan 120 mls Continue rocephin Send Urine Culture I&Os, up catheter (2) PAUL (acute kidney injury) Code(s): N17.9 - ACUTE KIDNEY FAILURE, UNSPECIFIED Status: Acute Assessment and Plan: creatinine 1.59 and GFR 31 on 01/18/20 Will give IVF' Will Recheck in am (3) Hyponatremia Code(s): E87.1 - HYPO-OSMOLALITY AND HYPONATREMIA Status: Acute Assessment and Plan: Mild, 134 Will give IVF Recheck labs in am (4) DMII (diabetes mellitus, type 2) Status: Chronic Assessment and Plan: Daughter reports takes lantus 12 u daily BS 125, will hold Lantus for now Will start mild sliding scale AC/HS accuchecks CC diet (5) HLD (hyperlipidemia) Code(s): E78.5 - HYPERLIPIDEMIA, UNSPECIFIED Status: Chronic Assessment and Plan: Will restart atorvastatin when home meds reconciled by nursing. (6) HTN (hypertension) Code(s): I10 - ESSENTIAL (PRIMARY) HYPERTENSION Status: Chronic Assessment and Plan: SBP 160s Patient dose not take home medications for HTN Will monitor blood pressure and add prn if necessary (7) GERD (gastroesophageal reflux disease) Code(s): K21.9 - GASTRO-ESOPHAGEAL REFLUX DISEASE WITHOUT ESOPHAGITIS Status: Chronic Assessment and Plan: Will start protonix 40mg (8) Hx of bladder cancer Code(s): Z85.51 - PERSONAL HISTORY OF MALIGNANT NEOPLASM OF BLADDER Status: Chronic Assessment and Plan: CT abdomen/pelvis positive for soft tissue density lesion 2.1cm in bladder Will consult urology, Dr. Valverde Monitor H&H Q 6hr (9) Dementia Code(s): F03.90 - UNSPECIFIED DEMENTIA WITHOUT BEHAVIORAL DISTURBANCE Status: Acute Assessment and Plan: Baseline per daughter Will restart Donezipil home medication - Plan Plan: Consult PT/OT GI prophylaxis SCDs DVT prophylaxis, will hold blood thinners secondary to hematuria DNR per daughter DPOA is Chris Glass at [phone] Marina
[2020-01-28] MEDS: Levothyroxine Sodium 50 MCG TAB PO SCH (05:04)
--- NOTE | 2020-01-28 08:01 | ULT ---
BILATERAL LOWER EXTREMITY VENOUS DOPPLER ULTRASOUND: HISTORY: Bilateral lower extremity pain and edema. TECHNIQUE: Jang scale ultrasound with color flow and spectral Doppler imaging of the deep venous systems of the lower extremities was performed bilaterally. FINDINGS: There is good flow, compression, and augmentation noted in the common femoral, femoral, deep femoral, popliteal, posterior tibial, and greater saphenous veins on both sides. IMPRESSION: No evidence of deep vein thrombosis in either lower extremity. POS: ROA
[2020-01-28] MEDS: Gabapentin 300 MG CAP PO SCH ×2 (08:08→21:03)
[2020-01-28] MEDS ORDERED: Gabapentin 300 MG CAP PO SCH (09:00)
[2020-01-28] MEDS ORDERED: Prevnar 13-Val Conj/PF 0.5 ML SYRINGE IM ONE (09:00)
[2020-01-28] MEDS: Acetaminophen 325 MG TAB PO PRN ×2 (09:26→15:31)
[2020-01-28 09:50] LABS: #Eosinphils 0.1 thou/uL (0.0-0.7); #Lymphocytes 1.5 thou/uL (1.20-3.40); #Neutrophils 8.4 thou/uL (1.40-6.50); %Basophils 0.2 % (0.0-1.0); %Eosinophils 1.3 % (0.0-10.0); %Lymphocytes 13.5 % (21.0-51.0); %Monocytes 8.7 % (0.0-10.0); %Neutrophils 76.3 % (42.0-75.0); Hemoglobin 11.4 g/dL (12.0-16.0); Mean Corpuscular Hemoglobin 29.7 pg (27.0-31.0); Mean Corpuscular Volume 90.1 fL (78.0-98.0); Mean Platelet Volume 8.4 fL (7.4-10.4); Platelet Count 156 thou/uL (130-400); RBC Distribution Width 13.6 % (11.5-14.5); Red Blood Cell (RBC) Count 3.85 mill/uL (4.20-5.40)
[2020-01-28 10:04] LABS: Anion Gap 15 mmol/L (10-20); BUN (Urea Nitrogen) 23 mg/dL (9.8-20.1); Calc. Creatinine Clearance 25 mL/min (70-130); Calcium 7.9 mg/dL (7.8-10.44); Carbon Dioxide 20 mmol/L (23-31); Chloride 108 mmol/L (98-107); Estimated GFR-MDRD 23; Glucose 128 mg/dL (83-110); Potassium 4.8 mmol/L (3.5-5.1); Sodium 138 mmol/L (136-145)
--- NOTE | 2020-01-28 14:44 | EKG ---
Test Reason : STAT Blood Pressure : / mmHG Vent. Rate : 069 BPM Atrial Rate : 069 BPM P-R Int : 144 ms QRS Dur : 068 ms QT Int : 418 ms P-R-T Axes : 087 049 047 degrees QTc Int : 447 ms Normal sinus rhythm Nonspecific T wave abnormality Low voltage QRS Borderline ECG Confirmed by CRISTAL HOLDEN ([id number]) on 01/28/2020 2:44:36 PM Referred By: PATSY Confirmed By:CRISTAL HOLDEN
[2020-01-28 15:04] LABS: Hemoglobin 10.5 g/dL (12.0-16.0)
--- NOTE | 2020-01-28 15:16 | PDOC.HOSPP ---
- Subjective Encounter Date: 01/28/20 Encounter Time: 15:14 Subjective: Ms. Azul was seen today in follow-up of UTI and hematuria. She is a bit confused, but her only complaint is pain around her ribs, where she says she had shingles before. - Objective Vital Signs & Weight: Vital Signs (12 hours) Temp Pulse Pulse Resp BP BP Pulse Ox 01/28/20 11:12 94.7 F L 61 16 137/72 95 01/28/20 10:37 113/65 01/28/20 08:44 64 156/83 H 01/28/20 07:17 94.7 F L 61 14 128/58 L 97 01/28/20 04:52 97.9 F 63 17 139/74 98 Weight Weight 164 lb 1.6 oz I&O: 01/27/20 01/28/20 01/29/20 06:59 06:59 06:59 Intake Total 50 Output Total 200 Balance -150 Result Diagrams: 01/28/20 14:56 01/28/20 09:41 Additional Labs: Accuchecks 01/28/20 01/28/20 10:59 05:13 POC Glucose 105 153 H Hospitalist ROS - Medication Medications: Active Medications Generic Name Dose Route Start Last Admin Trade Name Freq PRN Reason Stop Dose Admin Acetaminophen 650 mg 01/28/20 01:30 01/28/20 09:26 Tylenol PO 650 mg Q4H PRN Administration Headache/Fever/Mild Pain (1-3) Gabapentin 300 mg 01/28/20 09:00 01/28/20 08:08 Neurontin PO 300 mg BID MICKIE Administration Levothyroxine Sodium 50 mcg 01/28/20 06:00 01/28/20 05:04 Synthroid PO 50 mcg 0600 MICKIE Administration - Exam Eye: PERRL Heart: RRR, no murmur, no gallops, no rubs, normal peripheral pulses Respiratory: CTAB, no wheezes, no rales, no ronchi, normal chest expansion, no tachypnea Gastrointestinal: soft, non-tender, non-distended, normal bowel sounds Hosp A/P (1) UTI (urinary tract infection) Status: Acute (2) Dementia Code(s): F03.90 - UNSPECIFIED DEMENTIA WITHOUT BEHAVIORAL DISTURBANCE Status: Acute (3) DMII (diabetes mellitus, type 2) Status: Chronic (4) GERD (gastroesophageal reflux disease) Code(s): K21.9 - GASTRO-ESOPHAGEAL REFLUX DISEASE WITHOUT ESOPHAGITIS Status: Chronic - Plan * UTI with hematuria- continue Rocephin * History of bladder cancer- continue treatment as per Dr. Valverde * Dementia- stable * DM- blood glucose is stable * PAUL- improved
[2020-01-28] MEDS: cefTRIAXone\\ROCEPHIN 1 GM in Sodium Chloride 0.9% 100 ML IVPB SCH (21:02)
[2020-01-28] MEDS: Donepezil HCl 5 MG TAB PO SCH (21:03)
[2020-01-28] MEDS: Atorvastatin Calcium 40 MG TAB PO SCH (21:03)
[2020-01-29] MEDS: Levothyroxine Sodium 50 MCG TAB PO SCH (05:11)
[2020-01-29] MEDS: Sodium Chloride 0.9% 1,000 ML IV SCH (05:11)
--- NOTE | 2020-01-29 07:55 | PDOC.FM ---
- Subjective Subjective: Doing well this morning, no acute events overnight. A/O x2 this morning, nurse report that mentation wax and wanes. Daughter is Yumi, per nurse report is considering hospice. Pt has been on hospice in past. Patient herself denies any acute pain, fever/chills, tolerating PO. No concerns. Pt was initially admitted to hospitalist team, found to be TAMP patient and thus care was transferred to family medicine team on 01/28. - Objective MAR Reviewed: Yes Vital Signs & Weight: Vital Signs (12 hours) Temp Pulse Resp BP Pulse Ox 01/29/20 03:37 97.1 F L 67 16 131/69 94 L 01/28/20 23:27 97.4 F L 63 18 146/66 H 97 01/28/20 20:00 96 Weight Weight 74.435 kg I&O: 01/28/20 01/29/20 01/30/20 06:59 06:59 06:59 Intake Total 50 2212 Output Total 200 975 Balance -150 1237 Result Diagrams: 01/29/20 07:50 01/29/20 07:50 Phys Exam - Physical Examination Constitutional: NAD (resting comfortably, good spirits) HEENT: moist MMs Neck: supple Respiratory: no wheezing, no rales tight with course breath sounds BL Cardiovascular: RRR Gastrointestinal: soft, non-tender, no distention, positive bowel sounds Musculoskeletal: no edema Deviation from normal: A/O x2, appears at baseline per report Dx/Plan (1) PAUL (acute kidney injury) Code(s): N17.9 - ACUTE KIDNEY FAILURE, UNSPECIFIED Status: Acute (2) Dementia Code(s): F03.90 - UNSPECIFIED DEMENTIA WITHOUT BEHAVIORAL DISTURBANCE Status: Acute (3) UTI (urinary tract infection) Status: Acute (4) DMII (diabetes mellitus, type 2) Status: Chronic (5) Hx of bladder cancer Code(s): Z85.51 - PERSONAL HISTORY OF MALIGNANT NEOPLASM OF BLADDER Status: Chronic - Plan Plan: 84yo F h/o transitional cell bladder cancer, DMII, CKD IV, HTN presented with PAUL and hematuria #Suspected UTI with hematuria - known transitional cell bladder cancer - UA: blood, LE, and bacteria - UCx pending - On Rocephin (01/27) - Hb 10.5, AM pending #PAUL on CKD IV - Cr 2.4 -> 2.03, AM pending - NS @ 75cc/hr, will discontinue with adequate PO intake and pending AM labs - cont to monitor #Transitional cell bladder cancer - Known to Dr. Valverde, consulted, apprec recs - likely contributing to the above - Palliative care consulted to assist with goals of care #DMII - holding home insulin as BG at goal - hyperglycemic protocol, ACHS accuchecks #HTN - cont home meds #Dementia - Appears at baseline, A/O x2, daughter is mPOA PCP: YONY Riley Code: DNR IVF: NS @ 75cc/hr Diet: CC VTE: SCDs, hematuria and thus holding pharmacologic VTE ppx Dispo: Pending urology recs, palliative care discussion, and UCx results. Anticipate discharge in 2-3 days pending clinical course. Addendum - Attending - Attending Attestation Date/Time: 01/29/20 1012 I personally evaluated the patient and discussed the management with Dr. Arredondo. I agree with the History, Examination, Assessment and Plan documented above with any addition or exceptions noted below. Patient stable. Urine culture pending, continue on Rocephin. Urology on board. H /H stable. Renal function improved.
[2020-01-29 07:58] LABS: #Eosinphils 0.3 thou/uL (0.0-0.7); #Lymphocytes 0.8 thou/uL (1.20-3.40); #Monocytes 0.5 thou/uL (0.11-0.59); #Neutrophils 6.8 thou/uL (1.40-6.50); %Basophils 0.2 % (0.0-1.0); %Eosinophils 3.7 % (0.0-10.0); %Lymphocytes 8.9 % (21.0-51.0); %Monocytes 5.8 % (0.0-10.0); %Neutrophils 81.4 % (42.0-75.0); Hemoglobin 11.1 g/dL (12.0-16.0); Mean Corpuscular HGB CONC 32.7 g/dL (32.0-36.0); Mean Corpuscular Volume 91.8 fL (78.0-98.0); Mean Platelet Volume 8.3 fL (7.4-10.4); Platelet Count 160 thou/uL (130-400); RBC Distribution Width 13.4 % (11.5-14.5); Red Blood Cell (RBC) Count 3.69 mill/uL (4.20-5.40); White Blood Cell (WBC) Count 8.4 thou/uL (4.8-10.8)
[2020-01-29 08:17] LABS: Anion Gap 10 mmol/L (10-20); BUN (Urea Nitrogen) 18 mg/dL (9.8-20.1); Calc. Creatinine Clearance 28 mL/min (70-130); Calcium 7.7 mg/dL (7.8-10.44); Carbon Dioxide 21 mmol/L (23-31); Chloride 110 mmol/L (98-107); Estimated GFR-MDRD 26; Glucose 104 mg/dL (83-110); Potassium 4.1 mmol/L (3.5-5.1); Sodium 137 mmol/L (136-145)
[2020-01-29] MEDS: Gabapentin 300 MG CAP PO SCH ×2 (09:17→20:23)
[2020-01-29] MEDS: Carvedilol 3.125 MG TAB PO SCH ×2 (09:17→20:23)
--- NOTE | 2020-01-29 10:20 | PRG ---
DATE OF SERVICE: 01/29/2020 SUBJECTIVE: The patient states she is feeling fine. She is having discomfort at the site of her postherpetic neuralgia. She has no other complaints. OBJECTIVE: VITAL SIGNS: Temperature 98, pulse 66, respirations 16, blood pressure 131/52, saturation 93% on room air. GENERAL: No apparent distress, still confused but alert. CARDIOVASCULAR: Regular rate and rhythm. ABDOMEN: Soft, nontender, nondistended. Positive bowel sounds. CHEST: Nonlabored breathing, symmetric expansion. : Harvey catheter in place with dark red urine. EXTREMITIES: Positive clubbing, no cyanosis, trace edema in the lower extremities. LABORATORY EVALUATION: The patient's white count today is 8.4 with a creatinine of 1.84. ASSESSMENT AND PLAN: An 84-year-old female with a bladder mass and emphysematous cystitis with gross hematuria likely secondary to either bladder tumor versus severe infection. I would recommend continue catheter drainage at this time. If the catheter is having problems with clogging or is not draining well, I would recommend upsizing her to a 22-Irish Harvey catheter for better drainage. For now, continue with antibiotics as recommended. We will defer cystoscopy to outpatient. Palliative Care consult is still pending. Job ID: [id number]
--- NOTE | 2020-01-29 11:44 | CON ---
DATE OF CONSULTATION: 01/28/2020 WINDOWS TECHNICAL SPECIALIST: Dr. Valverde. REASON FOR CONSULTATION: Emphysematous cystitis and bladder mass. HISTORY OF PRESENT ILLNESS: Ms. Azul is an 84-year-old female, who is well known to me for her prior history of bladder cancer and advanced COPD. Approximately 4-5 years ago I had done a transurethral resection of bladder tumor at which point she was found to have high-grade bladder cancer. After her surgery, she had a prolonged intubation requiring stay in the ICU and intubation for approximately 1-2 days after which point she was able to be weaned to extubation. Given that her COPD has not improved and she has continued to have fairly significant pulmonary problems and advancing age, we ultimately elected to stop surveillance in the office and we elected not to pursue any further cystoscopies as the patient elected to go onto hospice and palliative care therapy or treatment secondary to her medical conditions. She remained on hospice for over 1-2 years after which point she elected to come off hospice secondary to wanting to stay around longer to be with her grandson. During this time, she did not return for followup for routine cystoscopies. Recently, it was noted that her she was getting worsening altered mental status and becoming more confused and lethargic. Her daughter wanted to bring her to the hospital, but the patient was adamant about not wanting to go to the hospital. Eventually, the daughter did convince the patient to be taken to the hospital at which point she was found to be acutely ill with a CT scan demonstrating a bladder mass and emphysematous cystitis. The patient had a Harvey catheter placed and was placed on broad-spectrum antibiotics. I was consulted then for further assistance. Of note almost all of the history is obtained from the patient's daughter over the telephone. The patient herself is extremely delirious and is a poor historian. She does not recall who I am nor much of her history. She currently states that she is having a little bit of discomfort, but otherwise is not endorsing any major symptoms. ALLERGIES: NONE. HOME MEDICATIONS: 1. Lasix. 2. Coreg. 3. Albuterol. 4. Levemir FlexPen. 5. Vitamin D. 6. Atorvastatin. 7. Neurontin. 8. Ferrous sulfate. 9. Aricept. 10. Omeprazole. 11. Myrbetriq. 12. Synthroid. PAST MEDICAL HISTORY: 1. Hypertension. 2. Hyperlipidemia. 3. Dementia. 4. Gastroesophageal reflux disease. 5. Bladder cancer. 6. Type 2 diabetes. 7. Hypothyroidism. 8. Overactive bladder with urge incontinence. PAST SURGICAL HISTORY: 1. . 2. Hysterectomy. 3. Transurethral resection of bladder tumor. SOCIAL HISTORY: The patient is a former smoker, but quit approximately 5-10 years ago. She denies alcohol abuse or illicit drug use. She does live with her family. FAMILY HISTORY: Noncontributory. REVIEW OF SYSTEMS: A 12-point review of system was unable to be obtained from the patient secondary to her altered mental status. PHYSICAL EXAMINATION: VITAL SIGNS: Temperature 97.6, pulse 60, respirations 14, blood pressure 152/72, saturation 98% on room air. GENERAL: No apparent distress, confused, not answering questions appropriately. Appears stated age, obese. HEENT: Normocephalic, atraumatic. Pupils are symmetric and round. Sclerae nonicteric. Trachea midline. Moist mucous membranes. No nasal cannula. CARDIOVASCULAR: Regular rate and rhythm. Normal S1, S2. Symmetric pulses. CHEST: No increased work of breathing, symmetric expansion of the lungs. Decreased air movement, a few scattered wheezes. ABDOMEN: Soft, obese. Difficult to palpate internal organs. There is sensitivity on her right flank, which appears to be scarred from post herpetic neuralgia. This area is very sensitive. There are no obvious masses. : Harvey catheter in place, secured with light red translucent colored urine. EXTREMITIES: No cyanosis or edema. Clubbing is present. MUSCULOSKELETAL: No obvious joint deformities or joint erythema noted. Full range of motion. SKIN: Warm and dry, poor turgor. No rashes or lesions. NEUROLOGIC: Cranial nerves 2-12 appear grossly intact. No focal or sensory motor deficits identified. PSYCHIATRIC: Alert and oriented x1. The patient is somewhat confused, but otherwise normal mood and affect. LABORATORY EVALUATION: Full set of labs are in the [facility] system, which I have reviewed. Of note, the patient's white count is 11 with a hemoglobin of 11.4, creatinine is 2.03. Urine demonstrates extra turbid urine, 200 protein, 3+ blood, 500 leukocyte esterase, nitrite negative, greater than 50 rbc's and wbc's with 4+ bacteria. Preliminary culture is inconclusive at this time and proceeding for further results. CT of the abdomen and pelvis demonstrates marked abnormal urinary bladder with appearance of emphysematous cystitis with intraluminal gas as well as gas probably within the wall of the bladder itself. There is an oval soft tissue density measuring about 2.1 cm along the posterior lateral right lower bladder wall which may represent a neoplasm. There is noted atherosclerosis, a small hiatal hernia and diverticulosis. ASSESSMENT AND PLAN: An 84-year-old female with gross hematuria and emphysematous cystitis with a bladder mass which has a high risk of being urothelial carcinoma. Other possibilities include mucus ball from infection, blood clot. At this time, I would not recommend a cystoscopy as the patient has a fairly severe urinary tract infection and instrumentation should be minimized. I do agree with Harvey catheter drainage given that she does have emphysematous cystitis. Ultimately, I had a long talk with the daughter as the patient is not able to adequately make medical decisions on her own. The daughter states that the patient has long stated that she is at end of life and she is ready to pass away. She had largely come off hospice for her grandson, but at this point, she feels that they have spent enough time together and the patient has multiply stated that she is ready to go again. I think it would be reasonable to consult Palliative Care to reestablish with the patient to see if she would be willing to go back on hospice again. For now I do think antibiotic treatment is reasonable as it would be both palliative and curative in the sense of her emphysematous cystitis. Harvey catheter drainage should be continued until the patient's infection is completely cleared at which point, a voiding trial can be performed. Regarding her bladder mass, once the patient has had her infection completely cleared, I would recommend an outpatient cystoscopy. If there is a tumor present, we probably will recommend palliative care only as the patient did extremely poorly with her last transurethral resection of bladder tumor. If the family absolutely did want to proceed with transurethral resection of bladder tumor again, if it was urothelial carcinoma then I would probably recommend that this be done under spinal as the patient did extremely poorly with intubation last time. I will continue to follow along and make recommendations, but for the current time, I do think the patient re-establishing with palliative care would be reasonable given that was her prior wishes before she became confused and altered as she is currently. Job ID: [id number]
[2020-01-29] MEDS: cefTRIAXone\\ROCEPHIN 1 GM in Sodium Chloride 0.9% 100 ML IVPB SCH (20:22)
[2020-01-29] MEDS: Atorvastatin Calcium 40 MG TAB PO SCH (20:23)
[2020-01-29] MEDS: Donepezil HCl 5 MG TAB PO SCH (20:23)
[2020-01-30 05:46] LABS: #Eosinphils 0.4 thou/uL (0.0-0.7); #Lymphocytes 1.2 thou/uL (1.20-3.40); #Monocytes 0.5 thou/uL (0.11-0.59); #Neutrophils 4.8 thou/uL (1.40-6.50); %Basophils 0.1 % (0.0-1.0); %Eosinophils 5.3 % (0.0-10.0); %Lymphocytes 18.1 % (21.0-51.0); %Neutrophils 69.5 % (42.0-75.0); Hemoglobin 9.8 g/dL (12.0-16.0); Mean Corpuscular HGB CONC 34.3 g/dL (32.0-36.0); Mean Corpuscular Hemoglobin 30.7 pg (27.0-31.0); Mean Corpuscular Volume 89.5 fL (78.0-98.0); Mean Platelet Volume 8.1 fL (7.4-10.4); Platelet Count 157 thou/uL (130-400); RBC Distribution Width 13.4 % (11.5-14.5); White Blood Cell (WBC) Count 6.9 thou/uL (4.8-10.8)
[2020-01-30] MEDS: Levothyroxine Sodium 50 MCG TAB PO SCH (05:55)
[2020-01-30 06:02] LABS: Anion Gap 10 mmol/L (10-20); BUN (Urea Nitrogen) 14 mg/dL (9.8-20.1); Calc. Creatinine Clearance 29 mL/min (70-130); Carbon Dioxide 21 mmol/L (23-31); Chloride 112 mmol/L (98-107); Estimated GFR-MDRD 28; Glucose 83 mg/dL (83-110); Potassium 3.8 mmol/L (3.5-5.1); Sodium 139 mmol/L (136-145)
--- NOTE | 2020-01-30 06:30 | PDOC.FM ---
- Subjective Subjective: Doing well this morning, no acute events overnight. Tolerating PO. No fever/ chills, acute pains. sob. Eager to work with PT. Palliative care team met with pt and spoke with daughter, plan for cont current management to f/u with uro as outpt for further eval, may consider hospice in future. - Objective MAR Reviewed: Yes Vital Signs & Weight: Vital Signs (12 hours) Temp Pulse Resp BP Pulse Ox 01/30/20 03:53 97.6 F 69 18 139/58 L 94 L 01/30/20 00:03 97.4 F L 64 18 157/72 H 97 01/29/20 20:15 95 01/29/20 19:42 98.6 F 66 18 160/78 H 95 Weight Weight 74.435 kg I&O: 01/28/20 01/29/20 01/30/20 06:59 06:59 06:59 Intake Total 50 2212 1500 Output Total 986 934 7975 Balance -150 1237 -50 Result Diagrams: 01/30/20 05:37 01/30/20 05:37 Phys Exam - Physical Examination Constitutional: NAD (resting comfortably, A/O x2, appears at baseline) HEENT: moist MMs Neck: supple Respiratory: no wheezing, no rales, no rhonchi, clear to auscultation bilateral Cardiovascular: RRR Gastrointestinal: soft, non-tender, no distention, positive bowel sounds Up in place - blood-tinged urine Musculoskeletal: no edema Neurological: moves all 4 limbs Dx/Plan (1) PAUL (acute kidney injury) Code(s): N17.9 - ACUTE KIDNEY FAILURE, UNSPECIFIED Status: Acute (2) Dementia Code(s): F03.90 - UNSPECIFIED DEMENTIA WITHOUT BEHAVIORAL DISTURBANCE Status: Acute (3) UTI (urinary tract infection) Status: Acute (4) DMII (diabetes mellitus, type 2) Status: Chronic (5) Hx of bladder cancer Code(s): Z85.51 - PERSONAL HISTORY OF MALIGNANT NEOPLASM OF BLADDER Status: Chronic - Plan Plan: 84yo F h/o transitional cell bladder cancer, DMII, CKD IV, HTN presented with PAUL and hematuria #E. Coli Emphysematous Cystitis with hematuria - h/o transitional cell bladder cancer, current bladder mass - UA: blood, LE, and bacteria - UCx E. Coli resistant to quinolones, amp, bactrim - On Rocephin (01/27) - will transition to cefdinir at time of d/c for total of 10 day course - Hb 10.5-> 9.8 #PAUL on CKD IV, resolved - Cr 2.4 -> 2.03 -> 1.74 - cont to monitor #H/o Transitional cell bladder cancer - Known to Dr. Valverde, consulted, cont up drainage, plan for outpt cystoscopy to further eval apprec recs - likely contributing to the above - Palliative care consulted to assist with goals of care, daughter would like to proceed with UTI tx, outpt follow up, and possibly transition to hospice as an outpt #DMII - holding home insulin as BG at goal - hyperglycemic protocol, ACHS accuchecks #HTN - cont home meds #Dementia - Appears at baseline, A/O x2, daughter is mPOA PCP: YONY Riley Code: DNR IVF: SL Diet: CC VTE: SCDs, hematuria and thus holding pharmacologic VTE ppx Dispo: E. Coli UTI, treating. Uro to speak with daughterYumi today. Nearing discharge. Anticipate discharge in next 1-2 days. Addendum - Attending - Attending Attestation Date/Time: 01/30/20 1035 I personally evaluated the patient and discussed the management with Dr. Arredondo. I agree with the History, Examination, Assessment and Plan documented above with any addition or exceptions noted below. Patient stable. Urine culture resulted, on appropriate therapy. Discuss with Urology but inpatient workup overall complete and may be ready for dc today.
[2020-01-30] MEDS: Gabapentin 300 MG CAP PO SCH ×2 (10:01→21:17)
[2020-01-30] MEDS: Carvedilol 3.125 MG TAB PO SCH ×2 (10:01→21:17)
[2020-01-30] MEDS: hydrALAZINE 20 MG/ML VIAL SLOW IVP PRN (21:16)
[2020-01-30] MEDS: Donepezil HCl 5 MG TAB PO SCH (21:17)
[2020-01-30] MEDS: cefTRIAXone\\ROCEPHIN 1 GM in Sodium Chloride 0.9% 100 ML IVPB SCH (21:17)
[2020-01-30] MEDS: Atorvastatin Calcium 40 MG TAB PO SCH (21:17)
[2020-01-31] MEDS ORDERED: Haloperidol Lactate 5 MG/ML VIAL SLOW IVP SCH (00:07)
--- NOTE | 2020-01-31 01:13 | PRG ---
DATE OF SERVICE: 01/30/2020 SUBJECTIVE: Patient is doing well. She is comfortable. She is not complaining of any pain. She is not having any bladder spasms. I did speak with her daughter today regarding her overall disposition and further care plans which are outlined below. OBJECTIVE: VITAL SIGNS: Temperature 98.4, pulse 73, respirations 16, blood pressure 193/75, and saturations 96% on room air. GENERAL: No apparent distress, resting comfortably. Still somewhat confused and delirious. CHEST: No increased work of breathing. Symmetric expansion of the lungs. CARDIOVASCULAR: Regular rate and rhythm. ABDOMEN: Soft, nontender, and nondistended. Obese. Positive bowel sounds. : Harvey catheter in place, draining dark red but translucent urine without clots. EXTREMITIES: No clubbing, cyanosis, or edema. LABORATORY EVALUATION: Patient's white count is currently 6.9 and hemoglobin 9.8. Creatinine is 1.74. Microbiology demonstrates E coli in the urine, resistant to fluoroquinolones and Bactrim, sensitive to cephalosporins, nitrofurantoin. ASSESSMENT AND PLAN: An 84-year-old female with diabetes and advanced chronic obstructive pulmonary disease with a new bladder mass as well as gross hematuria and emphysematous cystitis on IV antibiotics. She is currently receiving ceftriaxone which is causing significant improvement. Unfortunately, there is no good oral regimen for her to be discharged on. The E coli is resistant to both ciprofloxacin and levofloxacin. Cefdinir and Keflex have very poor tissue penetration and poor coverage of E coli within the urine and do not achieve adequate urine levels. Additionally, nitrofurantoin has zero tissue penetration and it would not be adequate to treat her emphysematous cystitis. In this situation, I do think the best option would be to continue IV ceftriaxone. If she were to go to an oral regimen, Suprax or Vantin would be the best options. However, both of those antibiotics are extremely expensive and may not be covered under the patient's insurance. As such, if the patient can be set up for a PICC line and started on IV antibiotics to go home on, she will need a total duration of approximately 14 days for treatment of a soft tissue infection. I do think that when she is ready for discharge, she can undergo a void trial so long as she is able to urinate, then the patient can go home without a Harvey catheter. However, if the patient is having difficulty with urination and the Harvey catheter should be maintained and she can be discharged with a Harvey catheter and I can always remove it as an outpatient. I would recommend that she follow up with me for cystoscopy in approximately 2 weeks, at which point, we will plan for evaluation to see if the mass within her bladder is bladder cancer. Per my discussion with the daughter, we have agreed that if it is indeed a bladder cancer, we will probably follow hospice again and not plan for any surgical intervention. Patient may require physical therapy for now, if she is not being taken onto hospice. Dr. Morgan will be covering me over the weekend. If there are any concerning issues, these can be addressed to him on Sunday and Sunday and I will resume care on Sunday. Job ID: [id number] MTDD
[2020-01-31] MEDS: Levothyroxine Sodium 50 MCG TAB PO SCH (05:47)
--- NOTE | 2020-01-31 07:24 | PDOC.FM ---
- Subjective Subjective: Overnight had episode of delirium with vision hallucinations and agitation. Unable to reorient. Haldol x1 dose given with improvement of sxs and resting comfortably now. No feve/chills, n/v. Tolerating PO. Up in place. - Objective MAR Reviewed: Yes Vital Signs & Weight: Vital Signs (12 hours) Temp Pulse Resp BP BP Pulse Ox 01/31/20 07:19 98.4 F 63 16 159/68 H 96 01/31/20 03:45 98.6 F 65 16 125/64 95 01/30/20 23:38 98.6 F 72 16 137/61 95 01/30/20 21:16 73 193/75 H 01/30/20 19:39 98.4 F 73 16 193/75 H 96 Weight Weight 74.435 kg I&O: 01/30/20 01/31/20 02/01/20 06:59 06:59 06:59 Intake Total 1500 520 Output Total 1550 1150 Balance -50 -630 Result Diagrams: 01/31/20 10:16 01/30/20 05:37 Phys Exam - Physical Examination Constitutional: NAD (resting comfortably) HEENT: moist MMs Neck: supple Respiratory: no wheezing, no rales, no rhonchi, clear to auscultation bilateral Cardiovascular: RRR Gastrointestinal: soft, non-tender, no distention, positive bowel sounds Up in place, blood-tinged urine Musculoskeletal: no edema Dx/Plan (1) PAUL (acute kidney injury) Code(s): N17.9 - ACUTE KIDNEY FAILURE, UNSPECIFIED Status: Acute (2) Dementia Code(s): F03.90 - UNSPECIFIED DEMENTIA WITHOUT BEHAVIORAL DISTURBANCE Status: Acute (3) UTI (urinary tract infection) Status: Acute (4) DMII (diabetes mellitus, type 2) Status: Chronic (5) Hx of bladder cancer Code(s): Z85.51 - PERSONAL HISTORY OF MALIGNANT NEOPLASM OF BLADDER Status: Chronic - Plan Plan: 84yo F h/o transitional cell bladder cancer, DMII, CKD IV, HTN presented with PAUL and hematuria #E. Coli Emphysematous Cystitis with hematuria - h/o transitional cell bladder cancer, current bladder mass - UA: blood, LE, and bacteria - UCx E. Coli resistant to quinolones, amp, bactrim - On Rocephin (01/27) - will need total of 14d course, Uro rec PICC line with Rocephin daily to complete treatment due to susceptibilities of E. Coli, apprec recs - Hb 10.5-> 9.8, AM pending #H/o Transitional cell bladder cancer - Known to Dr. Valverde, consulted, cont up drainage, can bladder train at time of discharge and consider removing up prior to discharge, plan for outpt cystoscopy to further eval apprec recs - likely contributing to the above - Palliative care consulted to assist with goals of care, daughter would like to proceed with UTI tx, outpt follow up, and possibly transition to hospice as an outpt #PAUL on CKD IV, resolved - Cr 2.4 -> 2.03 -> 1.74 - cont to monitor #DMII - holding home insulin as BG at goal - hyperglycemic protocol, ACHS accuchecks #HTN - cont home meds - labile BP, will titrate meds cautiously #Dementia - Appears at baseline, A/O x2, daughter is mPOA PCP: YONY Riley Code: DNR IVF: SL Diet: CC VTE: SCDs, hematuria and thus holding pharmacologic VTE ppx Dispo: E. Coli UTI, treating. Uro consult, apprec recs. Arranging 2 week abx course. Anticipate discharge next 1-2 days. Addendum - Attending - Attending Attestation Date/Time: 01/31/20 1029 I personally evaluated the patient and discussed the management with Dr. Arredondo. I agree with the History, Examination, Assessment and Plan documented above with any addition or exceptions noted below. Patient stable. Will now need outpatient IV abx per Urology, will work on PICC line and setting that up.
[2020-01-31] MEDS ORDERED: Furosemide 20 MG TAB PO SCH (09:00)
[2020-01-31] MEDS: Ferrous Sulfate 325 MG TAB PO SCH (09:05)
[2020-01-31] MEDS: Gabapentin 300 MG CAP PO SCH ×2 (09:05→20:19)
[2020-01-31] MEDS: Carvedilol 3.125 MG TAB PO SCH ×2 (09:05→20:19)
[2020-01-31 10:28] LABS: #Eosinphils 0.3 thou/uL (0.0-0.7); #Lymphocytes 1.5 thou/uL (1.20-3.40); #Monocytes 0.5 thou/uL (0.11-0.59); #Neutrophils 6.8 thou/uL (1.40-6.50); %Basophils 0.4 % (0.0-1.0); %Eosinophils 3.5 % (0.0-10.0); %Lymphocytes 16.4 % (21.0-51.0); %Monocytes 4.9 % (0.0-10.0); %Neutrophils 74.9 % (42.0-75.0); Hemoglobin 10.8 g/dL (12.0-16.0); Mean Corpuscular HGB CONC 32.4 g/dL (32.0-36.0); Mean Corpuscular Volume 89.6 fL (78.0-98.0); Mean Platelet Volume 8.2 fL (7.4-10.4); Platelet Count 210 thou/uL (130-400); RBC Distribution Width 13.4 % (11.5-14.5); Red Blood Cell (RBC) Count 3.71 mill/uL (4.20-5.40); White Blood Cell (WBC) Count 9.1 thou/uL (4.8-10.8)
[2020-01-31] MEDS: cefTRIAXone\\ROCEPHIN 1 GM in Sodium Chloride 0.9% 100 ML IVPB SCH (20:18)
[2020-01-31] MEDS: Atorvastatin Calcium 40 MG TAB PO SCH (20:18)
[2020-01-31] MEDS: Donepezil HCl 5 MG TAB PO SCH (20:19)
[2020-02-01] MEDS: hydrALAZINE 20 MG/ML VIAL SLOW IVP PRN (00:02)
[2020-02-01] MEDS: Levothyroxine Sodium 50 MCG TAB PO SCH (04:59)
[2020-02-01 07:41] LABS: Anion Gap 12 mmol/L (10-20); BUN (Urea Nitrogen) 18 mg/dL (9.8-20.1); Calc. Creatinine Clearance 26 mL/min (70-130); Calcium 8.4 mg/dL (7.8-10.44); Carbon Dioxide 25 mmol/L (23-31); Chloride 107 mmol/L (98-107); Estimated GFR-MDRD 24; Glucose 94 mg/dL (83-110); Potassium 3.4 mmol/L (3.5-5.1); Sodium 141 mmol/L (136-145)
--- NOTE | 2020-02-01 07:55 | PDOC.FM ---
- Subjective Subjective: Did well overnight, no acute events, no delirium. This morning she is doing well , eager for discharge. No pain, fever/chills, n/v. Tolerating PO well. Working with therapy. - Objective MAR Reviewed: Yes Vital Signs & Weight: Vital Signs (12 hours) Temp Pulse Resp BP BP Pulse Ox 02/01/20 04:27 97.6 F 61 16 157/71 H 96 02/01/20 00:02 65 186/72 H 01/31/20 23:53 97.5 F L 65 16 186/72 H 97 01/31/20 19:58 98.3 F 63 16 172/62 H 95 Weight Weight 74.435 kg I&O: 01/31/20 02/01/20 02/02/20 06:59 06:59 06:59 Intake Total 520 420 Output Total 1150 1325 Balance -630 -905 Result Diagrams: 01/31/20 10:16 02/01/20 06:28 Phys Exam - Physical Examination Constitutional: NAD (resting comfortably, good spirits) HEENT: moist MMs Neck: supple Respiratory: no wheezing, no rales, no rhonchi, clear to auscultation bilateral Cardiovascular: RRR, no significant murmur Gastrointestinal: soft, non-tender, no distention, positive bowel sounds Up in place - straw colored urine Musculoskeletal: no edema Dx/Plan (1) PAUL (acute kidney injury) Code(s): N17.9 - ACUTE KIDNEY FAILURE, UNSPECIFIED Status: Acute (2) Dementia Code(s): F03.90 - UNSPECIFIED DEMENTIA WITHOUT BEHAVIORAL DISTURBANCE Status: Acute (3) UTI (urinary tract infection) Status: Acute (4) DMII (diabetes mellitus, type 2) Status: Chronic (5) Hx of bladder cancer Code(s): Z85.51 - PERSONAL HISTORY OF MALIGNANT NEOPLASM OF BLADDER Status: Chronic - Plan Plan: 84yo F h/o transitional cell bladder cancer, DMII, CKD IV, HTN presented with PAUL and hematuria #E. Coli Emphysematous Cystitis with hematuria - h/o transitional cell bladder cancer, current bladder mass - UCx E. Coli resistant to quinolones, amp, bactrim - On Rocephin (01/27) - will need total of 14d course, Uro rec PICC line with Rocephin daily to complete treatment due to susceptibilities of E. Coli, apprec recs - Plan for PICC line placement 02/01, arrange HH for home abx - Hb 10.5-> 9.8 -> 10.8, stable #H/o Transitional cell bladder cancer - Known to Dr. Valverde, consulted, cont up drainage, can bladder train at time of discharge and consider removing up prior to discharge, plan for outpt cystoscopy to further eval apprec recs - likely contributing to the above - Palliative care consulted to assist with goals of care, daughter would like to proceed with UTI tx, outpt follow up, and possibly transition to hospice as an outpt #PAUL on CKD IV, resolved - Cr 2.4 -> 2.03 -> 1.74 -> 1.98 - cont to monitor - monitor lytes and replace as necessary #DMII - holding home insulin as BG at goal - hyperglycemic protocol, ACHS accuchecks #HTN - cont home meds - labile BP, will titrate meds cautiously, consider addition of CCB #Dementia - Appears at baseline, A/O x2, daughter is mPOA PCP: YONY Riley Code: DNR IVF: SL Diet: CC VTE: SCDs, hematuria and thus holding pharmacologic VTE ppx Dispo: E. Coli UTI, treating. Uro consult, apprec recs. Arranging 2 week abx course. PICC line placement 02/01. Anticipate discharge next 1-2 days. Addendum - Attending - Attending Attestation Date/Time: 02/01/20 1006 I personally evaluated the patient and discussed the management with Dr. Arredondo. I agree with the History, Examination, Assessment and Plan documented above with any addition or exceptions noted below. Patient stable. Continue on Rocephin for UTI. PICC line tomorrow and should be stable for discharge after that time with outpatient abx set up.
[2020-02-01] MEDS ORDERED: Potassium Chloride 20 MEQ TAB PO SCH (08:00)
[2020-02-01] MEDS: Ferrous Sulfate 325 MG TAB PO SCH (08:55)
[2020-02-01] MEDS: Carvedilol 3.125 MG TAB PO SCH ×2 (08:55→20:11)
[2020-02-01] MEDS: Gabapentin 300 MG CAP PO SCH ×2 (08:55→20:11)
[2020-02-01] MEDS ORDERED: Amlodipine 5 MG TAB PO SCH (10:30)
[2020-02-01] MEDS: Atorvastatin Calcium 40 MG TAB PO SCH (20:10)
[2020-02-01] MEDS: cefTRIAXone\\ROCEPHIN 1 GM in Sodium Chloride 0.9% 100 ML IVPB SCH (20:11)
[2020-02-01] MEDS: Donepezil HCl 5 MG TAB PO SCH (20:11)
[2020-02-02] MEDS: Levothyroxine Sodium 50 MCG TAB PO SCH (05:36)
[2020-02-02 06:52] LABS: Anion Gap 14 mmol/L (10-20); BUN (Urea Nitrogen) 20 mg/dL (9.8-20.1); Calc. Creatinine Clearance 26 mL/min (70-130); Calcium 8.6 mg/dL (7.8-10.44); Carbon Dioxide 20 mmol/L (23-31); Chloride 107 mmol/L (98-107); Estimated GFR-MDRD 24; Glucose 104 mg/dL (83-110); Potassium 4.2 mmol/L (3.5-5.1); Sodium 137 mmol/L (136-145)
--- NOTE | 2020-02-02 07:14 | PDOC.FM ---
- Subjective Subjective: Pt is able ot urinate on her own without a up cath. She is looking forward to going home as she is feeling lonely. Denies abd pain. PICC placement today. D/C home pending HH antibiotics. - Objective MAR Reviewed: Yes Vital Signs & Weight: Vital Signs (12 hours) Temp Pulse Resp BP Pulse Ox 02/02/20 03:36 97.4 F L 66 16 155/62 H 95 02/01/20 22:50 97.5 F L 65 16 165/71 H 96 02/01/20 19:31 98.1 F 63 17 157/73 H 99 Weight Weight 74.435 kg I&O: 02/01/20 02/02/20 02/03/20 06:59 06:59 06:59 Intake Total 420 1340 Output Total 1325 400 Balance -905 940 Result Diagrams: 01/31/20 10:16 02/02/20 05:51 Phys Exam - Physical Examination Constitutional: NAD HEENT: moist MMs Neck: no nodes, no JVD, full ROM Respiratory: no wheezing, clear to auscultation bilateral Cardiovascular: RRR, no significant murmur Gastrointestinal: soft, non-tender, no distention Musculoskeletal: pulses present Neurological: non-focal, moves all 4 limbs Psychiatric: normal affect, A&O x 3 Skin: no rash Dx/Plan (1) Hx of bladder cancer Code(s): Z85.51 - PERSONAL HISTORY OF MALIGNANT NEOPLASM OF BLADDER Status: Chronic (2) Dementia Code(s): F03.90 - UNSPECIFIED DEMENTIA WITHOUT BEHAVIORAL DISTURBANCE Status: Chronic Qualifiers: Dementia type: unspecified type Dementia behavioral disturbance: without behavioral disturbance Qualified Code(s): F03.90 - Unspecified dementia without behavioral disturbance (3) GERD (gastroesophageal reflux disease) Code(s): K21.9 - GASTRO-ESOPHAGEAL REFLUX DISEASE WITHOUT ESOPHAGITIS Status: Chronic Qualifiers: Esophagitis presence: without esophagitis Qualified Code(s): K21.9 - Gastro -esophageal reflux disease without esophagitis (4) UTI (urinary tract infection) Status: Acute - Plan Plan: 84yo F h/o transitional cell bladder cancer, DMII, CKD IV, HTN presented with PAUL and hematuria #E. Coli Emphysematous Cystitis with hematuria - h/o transitional cell bladder cancer, current bladder mass - UCx E. Coli resistant to quinolones, amp, bactrim - On Rocephin (01/27) - will need total of 14d course, Uro rec PICC line with Rocephin daily to complete treatment due to susceptibilities of E. Coli, apprec recs - Plan for PICC line placement 02/01, arrange HH for home abx - Hb 10.5-> 9.8 -> 10.8, stable #H/o Transitional cell bladder cancer - Known to Dr. Valverde, consulted, up cath removed and pt voiding well, plan for outpt cystoscopy to further eval apprec recs - likely contributing to the above - Palliative care consulted to assist with goals of care, daughter would like to proceed with UTI tx, outpt follow up, and possibly transition to hospice as an outpt #PAUL on CKD IV, resolved - Cr 2.4 -> 2.03 -> 1.74 -> 1.98 - cont to monitor - monitor lytes and replace as necessary #DMII - holding home insulin as BG at goal - hyperglycemic protocol, ACHS accuchecks #HTN - cont home meds - labile BP, will titrate meds cautiously, addition of CCB #Dementia - Appears at baseline, A/O x2, daughter is mPOA PCP: YONY Riley Code: DNR IVF: SL Diet: CC VTE: SCDs, hematuria and thus holding pharmacologic VTE ppx Dispo: E. Coli UTI, treating. Uro consult, apprec recs. Arranging 2 week abx course. PICC line placement 02/01. Anticipate discharge next 1-2 days. Addendum - Attending - Attending Attestation Date/Time: 02/02/20 0035 I personally evaluated the patient and discussed the management with Dr. Sy I agree with the History, Examination, Assessment and Plan documented above with any addition or exceptions noted below. PICC placed today. Arranging outpatient Abx then can d/c home.
[2020-02-02] MEDS: Carvedilol 3.125 MG TAB PO SCH ×2 (07:58→19:26)
[2020-02-02] MEDS: Gabapentin 300 MG CAP PO SCH ×2 (07:58→19:26)
[2020-02-02] MEDS: Ferrous Sulfate 325 MG TAB PO SCH (07:59)
[2020-02-02] MEDS ORDERED: Amlodipine 5 MG TAB PO SCH ×3 (09:00)
--- NOTE | 2020-02-02 12:48 | ULT ---
ULTRASOUND: HISTORY: Urinary tract infection. PICC line is required. FINDINGS: Targeted sonographic imaging of the left upper extremity venous system was performed. Brachial vein was identified. Refer to separate PICC line report for further detail. IMPRESSION: As above. POS: OFF
--- NOTE | 2020-02-02 13:00 | SPC ---
LEFT UPPER EXTREMITY PICC LINE PLACEMENT WITH [facility] [[email or web address]]ASOUND GUIDANCE: HISTORY: IV antibiotics required. Bladder infection. COMPARISON: None. EXPOSURE: 1.9 minutes; 4,642 mGy*^cm2. FINDINGS: Successful left upper extremity PICC line placement with ultrasound guidance. Distal tip is in the c avoatrial junction. 47 cm trim length. TECHNIQUE: Consent was obtained to perform a left upper extremity PICC line with ultrasound guidance. The left arm was prepped and draped in sterile fashion. 1% Lidocaine, buffered with sodium bicarbonate, was u sed for local anesthesia. Under sonographic guidance, micropuncture needle was used to cannulate the brachial vein. A 0.018 guidewire was advanced through the needle to the level of the superior vena cava. Under fluoroscopy, the wire was advanced to the proximal inferior vena cava to document venous access. The wire was subsequently pulled back to the superior vena cava. The tract was dilated. S bree lumen 4 [place] catheter was advanced over the wire. The wire was removed. Catheter flushes an d aspirates without difficulty. 47 cm trim length. IMPRESSION: Successful left upper extremity PICC line placement with ultrasound guidance. POS: OFF
[2020-02-02] MEDS: cefTRIAXone\\ROCEPHIN 1 GM in Sodium Chloride 0.9% 100 ML IVPB SCH (18:23)
[2020-02-02 19:26] VITALS: BP 166/63; TEMP 97.8
[2020-02-02] MEDS: Donepezil HCl 5 MG TAB PO SCH (19:26)
[2020-02-02] MEDS: Atorvastatin Calcium 40 MG TAB PO SCH (19:26)
--- NOTE | 2020-02-02 20:40 | DIS ---
DATE OF ADMISSION: 01/27/2020 DATE OF DISCHARGE: 02/02/2020 RESIDENT: Yvrose Sy DO ADMITTING ATTENDING: Joseph rose, Edson Tom NP DISCHARGE ATTENDING: [facility], Greyson Ward MD CONSULTS: Urology, Dr. Valverde, Palliative Care consulted. DISCHARGE MEDICATIONS: 1. Rocephin 1 g IV daily. 2. Amlodipine 5 mg p.o. daily. 3. Atorvastatin 40 mg p.o. at bedtime. 4. Coreg 3.125 mg p.o. b.i.d. 5. Vitamin D3 1000 units p.o. daily. 6. Aricept 5 mg p.o. at bedtime. 7. Ferrous sulfate 325 mg p.o. daily. 8. Gabapentin 300 mg p.o. at bedtime. 9. Levothyroxine 50 mcg p.o. daily. 10. Myrbetriq 25 mg p.o. at bedtime. 11. Omeprazole 20 mg p.o. at bedtime. 12. ProAir HFA 2 puffs inhaled q.6 hours p.r.n. 13. Levemir 15 units subcu at bedtime. DISCONTINUED MEDICATIONS: 20 mg p.o. Lasix daily. We will re-evaluate the need for Lasix at her followup visit with primary care physician in 1 week's time. HISTORY OF PRESENT ILLNESS/HOSPITAL COURSE: Care was transitioned over to our team on 01/28 as she is a [place] [facility]. The patient came into the emergency department due to hematuria for about 1 week. She has a history of bladder cancer, transitional cell cancer 6 years ago and has a mass currently. She also was found to have E coli emphysematous cystitis with hematuria, which was resistant to antibiotics that allowed a penetration into the tissues per Dr. Valverde, so it was elected to insert a PICC line with two weeks, 14 days of Rocephin IV antibiotic therapy. The patient will need to follow up with Dr. Valverde in 1 -2 weeks' time. She was able to pass her voiding trial and the Harvey was removed on 02/01/2020. The Harvey was placed on 01/28/2020. Bilateral lower extremity ultrasound showed no DVTs. Creatinine was acutely elevated to 2.41, which went back to baseline at 1.99. White blood cell count went from 12.5 to 11 to 9.1 on day of discharge. The patient was discharged with a PICC line, have 1 g Rocephin IV daily for a total 14 days, this will end on 02/10/20. She was set up with home health to provide this care and antibiotic therapy. We will have weekly CMP and weekly PICC line dressing changes. DISPOSITION: The patient was stable upon discharge. DISCHARGE INSTRUCTIONS: 1. Location: To home with home health. 2. Diet: Heart healthy and consistent carb. 3. Activity: As tolerated. 4. Followup: With Dr. Valverde in 1 to 2 weeks and follow up with primary care physician, Dr. Riley in 1 week's time. Job ID: [id number] MTDD
--- NOTE | 2020-02-04 07:55 | PQF ---
UNRULY RUIZ MARK [id number] [facility] A 3305 [id number] CLINICAL DOCUMENTATION CLARIFICATION FORM: POST DISCHARGE Addendum to original discharge summary date: ____ Late entry note date: __ DATE:02/04/2020 ATTN: Greyson Menon Please exercise your independent, professional judgment in responding to the clarification form. Clinical indicators are provided on the bottom of this form for your review Please check appropriate box(es): [ x ] Sepsis due to Cystitis [ ] SIRS due to non-infectious process (please specify etiology) [ ] with organ dysfunction [ ] without organ dysfunction [ ] Severe sepsis with acute organ dysfunction of: (Examples: respiratory failure, encephalopathy, acute kidney failure, other) [ ] Septic Shock [ ] Localized infection without sepsis [ ] Other diagnosis [ ] Unable to determine In addition, please specify: Present on Admission (POA): [ ] Yes [ ] No [ ] Unable to determine For continuity of documentation, please document condition throughout progress notes and discharge summary. Thank You. CLINICAL INDICATORS - SIGNS / SYMPTOMS / LABS Laboratory 01/26 WBC 12.5, Neutrophils 75.2, Lymphocytes 15.3Glucose 125, POC Glucose 153, BUN 24, Creatinine 2.41, GFR 19 Urine culture positive with E Coli Vital signs 01/26 BP 177/66, Pulse 73, Resp 20, Temp 97.8 H&P p1 01/26 Dr Tom Reports pt develop dysuria and some generalized malaise over the past 3 days H&P p4 01/26 UTI H&P p4 01/26 PAUL Hospitalist PN p1 4/15 She is bit confused, but her only complaint is pain around her ribs Consult p1 01/27 Dr Valverde Recently it was noted that her she was worsening altered metal status and becoming more confused and lethargic RISK FACTORS H&P p1 01/26 84 year-old Female H&P p1 01/26 Bladder Cancer H&P p1 01/26 DM H&P p1 01/26 Dementia H&P Former smoker H&P Hypothyroidism H&P HLD H&P p4 01/26 UTI Consult p2 01/28 - Obesity TREATMENTS: DEC 16 IV Rocephin 2gm DEC 16 IVF NS 1L DEC 16 Insulin 2 units subq DEC [address] abd/Pelvis 01/26 Nephrology Consult 01/27 Flip Trotter Urine Culture 01/26 (This form is maintained as a part of the permanent medical record) 2014 [employer] All Rights Reserved [email or web address] [email or web address]
--- NOTE | 2020-02-04 07:56 | PQF ---
UNRULY RUIZ MARK [id number] [facility] A- 3305 [id number] CLINICAL DOCUMENTATION CLARIFICATION FORM: POST DISCHARGE Addendum to original discharge summary date: ____ Late entry note date: __ DATE:02/04/2020 ATTN: Greyson Menon Please exercise your independent, professional judgment in responding to the clarification form. Clinical indicators are provided on the bottom of this form for your review Please check appropriate box(s): Encephalopathy: Etiology: [ ] Hypertensive [ x ] Metabolic [ ] Toxic [ ] Unspecified [ ] in the setting of underlying dementia [ ] Other (please specify) [ ] Transient Alteration of Awareness [ ] Other diagnosis [ ] Unable to determine In addition, please specify: Present on Admission (POA): [ x ] Yes [ ] No [ ] Unable to determine For continuity of documentation, please document condition throughout progress notes and discharge summary. Thank You. CLINICAL INDICATORS - SIGNS / SYMPTOMS / LABS Laboratory 01/26 WBC 12.5, Glucose 125, POC Glucose 153, BUN 24, Creatinine 2.41, GFR 19 Vital signs 01/26 BP 177/66, Pulse 73, Resp 20, Temp 97.8 H&P p1 01/26 Dr Tom Reports pt develop dysuria and some generalized malaise over the past 3 days Hospitalist PN p1 01/27 She is bit confused, but her only complaint is pain around her ribs Consult p1 01/27 Dr Valverde Recently it was noted that her she was worsening altered metal status and becoming more confused and lethargic RISK FACTORS H&P p1 01/26 84 year-old Female H&P p1 01/26 Bladder Cancer H&P p1 01/26 DM H&P p1 01/26 Dementia H&P p24/ Former smoker H&P p24/14 Hypothyroidism H&P p24/14 HLD H&P p4 4 UTI H&P p4 01/26 PAUL Consult p2 01/28 - Obesity TREATMENTS: DEC 16 IV Rocephin 2gm DEC 16 IVF NS 1L DEC 16 Insulin 2 units subq DEC [address] abd/Pelvis 01/26 Nephrology Consult 01/27 Flip Trotter (This form is maintained as a part of the permanent medical record) 2014 [employer] All Rights Reserved [email or web address]
--- NOTE | 2020-02-05 00:25 | PQF ---
UNRULY RUIZ MARK [id number] [facility] A- 3305 [id number] CLINICAL DOCUMENTATION CLARIFICATION FORM: POST DISCHARGE Addendum to original discharge summary date: ____ Late entry note date: __ DATE:02/05/2020 ATTN: Greyson Menon Please exercise your independent, professional judgment in responding to the clarification form. Clinical indicators are provided on the bottom of this form for your review Diagnosis: Sepsis (DOES NOT MEET CRITERIA. ONLY HAS 1 criteria (elevated WBC with normal vitals.) Present on Admission (POA): [ ] Yes [ ] No [ x ] Unable to determine Coding guidelines require hospitals to identify whether a diagnosis was present on admission (POA) or not. To accurately assign the appropriate POA indicator, this information must be clearly documented within the medical record. CLINICAL INDICATORS - SIGNS / SYMPTOMS / LABS Laboratory 01/26 WBC 12.5, Neutrophils 75.2, Lymphocytes 15.3Glucose 125, POC Glucose 153, BUN 24, Creatinine 2.41, GFR 19 Urine culture positive with E Coli Vital signs 01/26 BP 177/66, Pulse 73, Resp 20, Temp 97.8 H&P p1 01/26 Dr Tom Reports pt develop dysuria and some generalized malaise over the past 3 days H&P p4 01/26 UTI H&P p4 01/26 PAUL Hospitalist PN p1 01/27 She is bit confused, but her only complaint is pain around her ribs Consult p1 01/27 Dr Valverde Recently it was noted that her she was worsening altered metal status and becoming more confused and lethargic RISK FACTORS H&P p1 01/26 84 year-old Female H&P p1 01/26 Bladder Cancer H&P p1 01/26 DM H&P p1 01/26 Dementia H&P p24/ Former smoker H&P p24/ Hypothyroidism H&P p24/14 HLD H&P p4 01/26 UTI Consult p2 01/28 - Obesity TREATMENTS: DEC 16 IV Rocephin 2gm DEC 16 IVF NS 1L DEC 16 Insulin 2 units subq DEC [address] abd/Pelvis 01/26 Nephrology Consult 01/27 Flip Trotter Urine Culture 01/26 (This form is maintained as a part of the permanent medical record) 2014 [employer]. All Rights Reserved [email or web address]
== END 2020-02-02 19:55 | disposition home health service (06) | DRG 689 ==
LOC: ERS 16:40 → SURG A 23:07 → EEVIPCON 23:07
PROVIDERS: ADMIT Emergency Medicine; ATTEND Emergency Medicine
PROC: 0T9B70Z Drainage of Bladder with Drainage Device, Via Natural or Artificial Opening (ICD-10-PCS; principal; 2020-01-28)
PROC: 02HV33Z Insertion of Infusion Device into Superior Vena Cava, Percutaneous Approach (ICD-10-PCS; 2020-02-02)
PROC: B548ZZA Ultrasonography of Superior Vena Cava, Guidance (ICD-10-PCS; 2020-02-02)
DX: N30.81 Other cystitis with hematuria (principal); A41.51 Sepsis due to Escherichia coli [E. coli]; G93.41 Metabolic encephalopathy; N17.9 Acute kidney failure, unspecified; E87.1 Hypo-osmolality and hyponatremia; N18.4 Chronic kidney disease, stage 4 (severe); Z16.23 Resistance to quinolones and fluoroquinolones; Z16.11 Resistance to penicillins; F05 Delirium due to known physiological condition; Z66 Do not resuscitate; C67.4 Malignant neoplasm of posterior wall of bladder; F03.90 Unspecified dementia, unspecified severity, without behavioral disturbance, psychotic disturbance, mood disturbance, and anxiety; E78.5 Hyperlipidemia, unspecified; K21.9 Gastro-esophageal reflux disease without esophagitis; E03.9 Hypothyroidism, unspecified; I12.9 Hypertensive chronic kidney disease with stage 1 through stage 4 chronic kidney disease, or unspecified chronic kidney disease; E11.22 Type 2 diabetes mellitus with diabetic chronic kidney disease; J44.9 Chronic obstructive pulmonary disease, unspecified; N32.81 Overactive bladder; N39.41 Urge incontinence; E66.9 Obesity, unspecified; R44.1 Visual hallucinations; Z68.35 Body mass index [BMI] 35.0-35.9, adult; Z79.899 Other long term (current) drug therapy; Z90.710 Acquired absence of both cervix and uterus; Z87.891 Personal history of nicotine dependence; Z79.890 Hormone replacement therapy; Z79.4 Long term (current) use of insulin
CPT/HCPCS: 36415; 36416; 36569; 51701; 74176; 80048; 80053; 81003; 81015; 85025; 85610; 85730; 86850; 86900; 86901; 87077; 87086; 87186; 93005; 93010; 93970; 96361; 96365; 96375; A4353; C1751; J0360; J0696; J1630; J1644; J2270; J2405; J3490